=== PATIENT | female | born 1955 | race Caucasian/White ===

== ENCOUNTER 2017-03-03 14:42 | Emergency (ER) | payer OTHER ==
[2017-03-03 14:48] VITALS: O2SAT 95
[2017-03-03] MEDS ORDERED: BENADRYL 50 MG/ML IV ONE (14:53)
[2017-03-03] MEDS ORDERED: SUBLIMAZE 100 MCG/2 ML IV ONE (14:53)
--- NOTE | 2017-03-03 14:59 | ERPHSYRPT ---
- History of Present Illness Time Seen by Provider: 03/03/17 14:47 Source: patient, EMS Patient Subjective Stated Complaint: PT WAS AT WORK ET SLID ON SOMETHING ON THE FLOOR ET FELL-REPORTS PAIN TO [id number] ARM-LEFT KNEE-DENIES LOC BUT STATES THAT SHE WAS STUNNED AFTER FALLING Triage Nursing Assessment: PT PALE WARM ET DRY-ANSWERING ALL QUESTIONS CORRECTLY -MOVING UPPER EXTERMITIES WITH EASE-BRUISING NOTED TO UPPER LEFT ARM Physician History: CC: fall Hx: 61 y/o patient of Dr Matthews was working at [facility]. She slipped on the floor and fell. Hit her head. Pain in the head, neck, low back. Pain in left upper arm and left knee. No other injuries. No N/T/W. Last tetanus vaccine 4 years ago. No chest or abd pain. No N/V. No LOC but felt dazed. She has hx of HTN and DM but is not on blood thinners. Occurred: just prior to arrival Loss of Consciousness: no loss of consciousness, dazed Severity of Pain-Max: moderate Severity of Pain-Current: moderate Allergies/Adverse Reactions: Fish Containing Products Allergy (Verified 03/03/17 14:48) Penicillins Allergy (Verified 03/03/17 14:48) Hives sulfametrole [Sulfametrole] Allergy (Verified 03/03/17 14:48) Home Medications: Alprazolam [Xanax 0.5 mg] 0.5 mg PO TID PRN 02/19/15 [History] Cilostazol [Pletal] 50 mg PO DAILY 02/19/15 [History] Gabapentin 100 mg PO BID 02/19/15 [History] Hydrochlorothiazide 12.5 mg PO DAILY 02/19/15 [History] Insulin Glargine [Lantus Insulin] 35 units SQ QHS 02/19/15 [History] Insulin NPL/Insulin Lispro [Humalog Mix 50-50 Kwikpen] 1 unit SQ BID 02/19/15 [ History] Levothyroxine Sodium 150 mcg PO DAILY 02/19/15 [History] Naproxen 375 mg [Naprosyn 375 mg] 375 mg PO BID 02/19/15 [History] Potassium Gluconate 595 mg PO HS 02/19/15 [History] Montelukast Sodium [Singulair] 10 mg PO DAILY 06/19/16 [History] Hx Tetanus, Diphtheria Vaccination/Date Given: No Hx Influenza Vaccination/Date Given: Yes Hx Pneumococcal Vaccination/Date Given: No Immunizations Up to Date: Yes - Review of Systems Constitutional: No Symptoms, Fever Eyes: No Vision Changes Ears, Nose, & Throat: No Symptoms Respiratory: No Dyspnea Cardiac: No Chest Pain, No Syncope Abdominal/Gastrointestinal: No Abdominal Pain, No Nausea, No Vomiting Musculoskeletal: Back Pain, Neck Pain, Fall, Injury, Joint Pain Neurological: Headache, No Dizziness, No Focal Weakness, No Parasthesia All Other Systems: Reviewed and Negative - Past Medical History Pertinent Past Medical History: Yes Neurological History: Peripheral Neuropathy Cardiac History: High Cholesterol, Hypertension, Peripheral Vascular Disease Respiratory History: No Pertinent History Endocrine Medical History: Diabetes Type II, Hypothyroidism Musculoskeletal History: Arthritis GI Medical History: No Pertinent History History: No Pertinent History Psycho-Social History: Anxiety Female Reproductive Disorders: No Pertinent History - Past Surgical History Past Surgical History: Yes Neuro Surgical History: No Pertinent History Cardiac: Vascular Surgery Respiratory: No Pertinent History Gastrointestinal: Other Genitourinary: No Pertinent History Musculoskeletal: Orthopedic Surgery Female Surgical History: No Pertinent History Other Surgical History: ABDOMINAL ADHESION SURGERY BACK SURGERY LEG SURGERY FOR VEIN BLOCKAGE - Social History Smoking Status: Never smoker Exposure to second hand smoke: No Drug Use: none Patient Lives Alone: No - Nursing Vital Signs Nursing Vital Signs: Initial Vital Signs Temperature 98.0 F Temperature Source Oral Pulse Rate 100 Respiratory Rate 20 Blood Pressure [Right Arm] 147/86 Pain Intensity 8 - Kevin Coma Score Best Eye Response ([place]): (4) open spontaneously Best Verbal Response (Kevin): (5) oriented Best Motor Response ([place]): (6) obeys commands [place] Total: 15 - Physical Exam General Appearance: alert Head Injury: no evidence of injury Eye Exam: PERRL/EOMI ENT Exam: airway nml Neck Exam: mid-line tenderness, c-collar in place Respiratory/Chest Exam: normal breath sounds, No chest tenderness, No respiratory distress Cardiovascular Exam: normal heart sounds, regular rate/rhythm Gastrointestinal Exam: soft, No tenderness, No distention Back Exam: normal inspection, vertebral tenderness (low lumbar) Extremity Exam: tenderness (left upper arm with some swelling, left knee has mild ecchymosis. ROM intact. No hip tenderness.) Neurologic Exam: alert, oriented x 3, cooperative, sensation nml, No motor deficits Skin Exam: warm, dry, No rash SpO2 Interpretation: normal SpO2: 95 Oxygen Delivery: Room Air - Course Nursing assessment & vital signs reviewed: Yes Ordered Tests: Active Orders 24 hr Category Date Time Status Accucheck STAT Care 03/03/17 14:53 Active Accucheck STAT Care 03/03/17 17:31 Active Cold Application STAT Care 03/03/17 14:53 Active IV Insertion STAT Care 03/03/17 14:53 Active Sling Application STAT Care 03/03/17 15:43 Active CERVICAL SPINE WO CONTRAST [CT] Stat Exams 03/03/17 14:54 Completed HEAD WITHOUT CONTRAST [CT] Stat Exams 03/03/17 14:54 Completed HUMERUS Stat Exams 03/03/17 14:55 Completed KNEE (1 OR 2 VIEW) Stat Exams 03/03/17 14:55 Completed LUMBAR SPINE W/O [CT] Stat Exams 03/03/17 14:54 Completed SHOULDER Stat Exams 03/03/17 15:43 Completed CBC W DIFF Stat Lab 03/03/17 14:45 Completed CMP Stat Lab 03/03/17 14:45 Completed CULTURE,URINE Stat Lab 03/03/17 15:53 Ordered Manual Differential NC Stat Lab 03/03/17 14:45 Completed UA Stat Lab 03/03/17 16:30 Completed Medication Summary Discontinued Medications Generic Name Dose Route Start Last Admin Trade Name Phucq PRN Reason Stop Dose Admin Diphenhydramine HCl 25 mg 03/03/17 14:53 03/03/17 15:34 Benadryl 50 Mg/Ml IV 03/03/17 14:54 25 mg STAT ONE Administration Diphenhydramine HCl Confirm 03/03/17 15:28 Benadryl 50 Mg/Ml Administered 03/03/17 15:29 Dose 50 mg .ROUTE .STK-MED ONE Fentanyl Citrate 50 mcg 03/03/17 14:53 03/03/17 15:35 Sublimaze 100 Mcg/2 Ml IV 03/03/17 14:54 50 mcg STAT ONE Administration Fentanyl Citrate Confirm 03/03/17 15:28 Sublimaze 100 Mcg/2 Ml Administered 03/03/17 15:29 Dose 100 mcg .ROUTE .STK-MED ONE Lab/Rad Data: Laboratory Result Diagrams 03/03/17 14:45 03/03/17 14:45 Laboratory Results 03/03/17 03/03/17 03/03/17 Range/Units 16:30 14:45 14:45 WBC 8.6 (4.0-10.5) K/mm3 RBC 4.29 (4.1-5.4) M/mm3 Hgb 13.2 (12.0-16.0) gm/dl Hct 39.0 (35-47) % MCV 90.9 (78-100) fl MCH 30.8 (26-32) pg MCHC 33.8 (32-36) g/dl RDW 13.0 (11.5-14.0) % Plt Count 233 (150-450) K/mm3 MPV 11.5 H (6-9.5) fl Sodium 135 L (136-145) mEq/L Potassium 4.0 (3.5-5.1) mEq/L Chloride 99 (98-107) mEq/L Carbon Dioxide 25.0 (21-32) mEq/L Anion Gap 15.4 H (5-15) MEQ/L BUN 16 (9-20) mg/dL Creatinine 0.84 (0.55-1.30) mg/dl Estimated GFR > 60 ML/MIN Glucose 344 H (70-110) MG/DL Calcium 8.8 (8.5-10.1) mg/dL Total Bilirubin 0.4 (0.2-1.0) mg/dL AST 58 H (15-37) U/L ALT 87 H (12-78) U/L Alkaline Phosphatase 74 (46-116) U/L Serum Total Protein 7.5 (6.4-8.2) gm/dL Albumin 3.9 (3.4-5.0) g/dL Ur Collection Type CCMS Urine Color YELLOW (YELLOW) Urine Appearance CLEAR (CLEAR) Urine pH 6.0 (5-6) Ur Specific [place] 1.020 (1.005-1.025) Urine Protein NEGATIVE (Negative) Urine Glucose (UA) >=1000 (NEGATIVE) mg/dL Urine Ketones NEGATIVE (NEGATIVE) Urine Nitrite NEGATIVE (NEGATIVE) Urine Bilirubin NEGATIVE (NEGATIVE) Urine Urobilinogen 0.2 (0-1) mg/dL Urine WBC (Auto) NEGATIVE (NEGATIVE) Urine RBC (Auto) NEGATIVE (0-5) Kvng/ul Specimen Received 03-03-17 1648 - Progress Progress Note: 03/03/17 17:33 CT negative for acute fx or bleed. Left nondisplaced acromion fracture. Will place sling. Sugar high. She sees Dr Matthews and takes evening lantus on sliding scale. Will suppl with arnold now and advise follow up. Counseled pt/family regarding: lab results, diagnosis, need for follow-up, rad results - Departure Time of Disposition: 17:34 Departure Disposition: Home Clinical Impression: Fall, Nondisplaced fracture of left acromial process, Cervical sprain, Type 2 diabetes mellitus, uncontrolled Condition: Stable Critical Care Time: No Referrals: FLO MATTHEWS [Primary Care Provider] - Instructions: Hyperglycemia -- Adult, Shoulder Fracture Additional Instructions: Left arm sling. Stay with family tonite. Ice packs off and on. Watch sugar. Follow up with Dr Matthews or workers comp doctor tomorrow. Rx norco for pain. Prescriptions: Hydrocodone Bit/Acetaminophen [[place] 5-325 Tablet] 1 each PO Q6H PRN PRN #20 tablet PRN Reason: Pain
[2017-03-03] MEDS ORDERED: SUBLIMAZE 100 MCG/2 ML ONE (15:28)
[2017-03-03] MEDS ORDERED: BENADRYL 50 MG/ML ONE (15:28)
--- NOTE | 2017-03-03 15:34 | XRAY ---
Indication: Pain following fall. Comparison: September 27, 2010. AP/crosstable lateral left knee again demonstrates osteopenia with progressive worsening moderate/advanced tricompartment degenerative changes. No other bony, articular, or soft tissue abnormalities.
--- NOTE | 2017-03-03 15:40 | XRAY ---
Indication: Pain following fall. Comparison: None 2 views of the left humerus demonstrates nondisplaced distal acromion fracture. Incidental mild osteopenia and mild AC degenerative arthropathy. No other bony, articular, or soft tissue abnormalities.
--- NOTE | 2017-03-03 15:41 | XRAY ---
Indication: Pain following fall. Multiple contiguous axial images obtained through the head without contrast. Comparison: None No acute intracranial hemorrhage, abnormal extra-axial fluid collection, or mass effect. Fourth ventricle is midline without hydrocephalus. [place]-white matter differentiation is preserved. Bony calvarium intact. There is near complete opacification of the right maxillary sinus. Remaining visualized paranasal sinuses and mastoid air cells are clear. Impression: No acute intracranial abnormalities. Incidental right maxillary sinus disease. CTDI 52.39
--- NOTE | 2017-03-03 15:43 | XRAY ---
Indication: Pain following fall. Multiple contiguous axial images obtained through the cervical spine. Sagittal and coronal reformatted images obtained. Comparison: None Axial images negative for acute fracture, suspicious bony lesions, or spinal canal stenosis. Minimal C5-C7 degenerative endplate spurring. Sagittal and coronal reformatted images demonstrates lordotic straightening, positional versus paraspinal muscular spasm. Disc spaces maintained. No acute compression fracture, subluxation, or jumped facet. Normal appearing craniocervical junction. Visualized noncontrasted soft tissues demonstrates minimal bilateral carotid calcifications. Lung apices unremarkable. CT head reported separately. Impression: 1. Negative for acute fracture/subluxation. 2. Lordotic straightening, positional versus paraspinal spasm. 3. Minimal C5-C7 degenerative changes. CT DI 53.64
--- NOTE | 2017-03-03 15:47 | XRAY ---
Indication: Pain following fall. Multiple contiguous axial images obtained through the lumbar spine. Sagittal and coronal reformatted images obtained. Comparison: None L3-S1 images are markedly degraded by extreme beam artifact from bilateral pedicle screws/hooks and spinal rods. Axial images through the T12-L3 levels demonstrates mild/moderate annular disc osteophyte complex minimally effacing the thecal sac without large disc herniation or spinal canal stenosis. There is also L2-L3 degenerative vacuum disc phenomena. Sagittal and coronal reformatted images demonstrates mild lordotic straightening with L2-L4 degenerative disc space narrowing. No acute compression fracture or subluxation. Visualized noncontrasted soft tissues demonstrates minimal aortic calcifications. Impression: 1. Limited study due to posterior metallic spinal hardware from previous L4-S1 fusion surgery. 2. Negative for gross acute fracture or subluxation. 3. T12-L3 degenerative disc disease as detailed. CT DI 71.40
[2017-03-03 16:01] LABS: Mean Cell Volume 90.9 fl (78-100); Mean Corpuscular Hemoglobin 30.8 pg (26-32); Mean Platelet Volume 11.5 fl (6-9.5); Platelet Count 233 K/mm3 (150-450); Red Blood Count 4.29 M/mm3 (4.1-5.4); White Blood Count 8.6 K/mm3 (4.0-10.5)
--- NOTE | 2017-03-03 16:06 | XRAY ---
Indication: Pain following fall. Comparison: None 3 views of the left shoulder demonstrates nondisplaced acromion process fracture. Incidental osteopenia and AC degenerative arthropathy. No other bony, articular, or soft tissue abnormalities.
[2017-03-03 16:09] LABS: ALBUMIN 3.9 g/dL (3.4-5.0); ALKALINE PHOSPHATASE 74 U/L (46-116); ANION GAP 15.4 MEQ/L (5-15); BILIRUBIN,TOTAL 0.4 mg/dL (0.2-1.0); BLOOD UREA NITROGEN 16 mg/dL (9-20); CHLORIDE 99 mEq/L (98-107); Glucose 344 MG/DL (70-110); SGOT/AST 58 U/L (15-37); SGPT/ALT 87 U/L (12-78); SODIUM 135 mEq/L (136-145); Total Protein 7.5 gm/dL (6.4-8.2)
[2017-03-03 16:50] LABS: COMPLETE URINE MICROSCOPIC? NO; Collection Type CCMS
[2017-03-03] MEDS ORDERED: NovoLOG Insulin SQ ONE (17:36)
[2017-03-03] MEDS ORDERED: NovoLOG Insulin ONE (17:40)
[2017-03-03 17:54] VITALS: BP 151/86; PULSE 92
[2017-03-03 22:11] LABS: Eosinophil 3 % (0.00-3.0); Total Cells Counted 100
[2017-03-03 22:12] LABS: Platelet Estimate NORMAL (NORMAL)
== END 2017-03-03 17:55 | disposition home or self-care (01) ==
LOC: ED 14:42
DX: S42.125A Nondisplaced fracture of acromial process, left shoulder, initial encounter for closed fracture (principal); S16.1XXA Strain of muscle, fascia and tendon at neck level, initial encounter; E11.65 Type 2 diabetes mellitus with hyperglycemia; W01.0XXA Fall on same level from slipping, tripping and stumbling without subsequent striking against object, initial encounter; Y93.F9 Activity, other caregiving; Y92.129 Unspecified place in nursing home as the place of occurrence of the external cause; Y99.0 Civilian activity done for income or pay; Z79.899 Other long term (current) drug therapy; Z79.4 Long term (current) use of insulin
CPT/HCPCS: 36000; 36415; 70450; 72125; 72131; 73030; 73060; 73560; 80053; 81002; 82962; 85025; 87077; 87086; 96374; 96375; 99283; J1200; J3010; A9270-GY

== ENCOUNTER 2020-08-13 11:22 | Inpatient (IN) | payer OTHER, MEDICARE ==
--- NOTE | 2020-08-13 11:35 | ERPHSYRPT ---
- History of Present Illness Time Seen by Provider: 08/13/20 11:35 Historian: patient Exam Limitations: no limitations Physician History: This is a 64-year-old white female who is diabetic and has hypertension as well as hypothyroidism and presents with initially vomiting on Friday prior to this evaluation followed by right lower quadrant abdominal pain. The right l ower quadrant pain has worsened over the last 2 days. Patient has had no intra- abdominal surgeries in the past. She is unable to hold liquids down. She presents with a low-grade fever of 99.9 F. Patient denies cough, she denies chest pain. She denies shortness of breath. Quality: sharpness, stabbing Abdominal Pain Onset Location: RLQ Pain Radiation: no radiation Severity of Pain-Max: moderate Severity of Pain-Current: moderate Associated Symptoms: loss of appetite, nausea, vomiting, No chest pain, No diarrhea, No shortness of breath Previous symptoms: no prior history Allergies/Adverse Reactions: blueberry Allergy (Verified 08/13/20 11:42) Fish Containing Products Allergy (Verified 08/13/20 11:41) melon Allergy (Verified 08/13/20 11:42) Penicillins Allergy (Verified 08/13/20 11:41) Hives strawberry Allergy (Verified 08/13/20 11:42) sulfametrole [Sulfametrole] Allergy (Verified 08/13/20 11:41) Home Medications: ALPRAZolam [Xanax 0.5 mg] 0.5 mg PO TID PRN 02/19/15 [History] Cilostazol [Pletal] 50 mg PO DAILY 02/19/15 [History] Gabapentin 100 mg PO BID 02/19/15 [History] Levothyroxine Sodium 150 mcg PO DAILY 02/19/15 [History] Naproxen 375 mg [Naprosyn 375 mg] 375 mg PO BID 02/19/15 [History] Montelukast Sodium [Singulair] 10 mg PO DAILY 06/19/16 [History] Atorvastatin Calcium 1 ea DAILY 08/13/20 [History] Benazepril HCl 1 ea DAILY 08/13/20 [History] Empagliflozin [Jardiance] 10 mg PO DAILY 08/13/20 [History] Ergocalciferol (Vitamin D2) [Vitamin D2] 1 ea DAILY 08/13/20 [History] Fluticasone Propionate [Flonase NASAL] 1 ea DAILY 08/13/20 [History] Ipratropium [place] 1 ea Q6-8HPRN PRN 08/13/20 [History] Levothyroxine Sodium [Euthyrox] 1 ea DAILY 08/13/20 [History] Liraglutide [Victoza 2-Oc] 1 ea DAILY 08/13/20 [History] Metformin HCl 500 mg [Glucophage 500 MG] 1,000 mg DAILY 08/13/20 [History] Hx Tetanus, Diphtheria Vaccination/Date Given: No Hx Influenza Vaccination/Date Given: Yes Hx Pneumococcal Vaccination/Date Given: No Travel Risk - International Travel Have you traveled outside of the country in past 3 weeks: No - Coronavirus Screening Are you exhibiting any of the following symptoms?: No Close contact with a COVID-19 positive Pt in past 14-21 Days: No - Review of Systems Constitutional: Fever, No Chills Eyes: No Symptoms Ears, Nose, & Throat: No Symptoms Respiratory: No Symptoms Cardiac: No Symptoms Abdominal/Gastrointestinal: Abdominal Pain (Right lower quadrant), Nausea, Vomiting Genitourinary Symptoms: No Symptoms Musculoskeletal: No Symptoms Skin: No Symptoms Neurological: No Symptoms Psychological: No Symptoms Endocrine: No Symptoms Hematologic/Lymphatic: No Symptoms Immunological/Allergic: No Symptoms All Other Systems: Reviewed and Negative - Past Medical History Pertinent Past Medical History: Yes Neurological History: Peripheral Neuropathy Cardiac History: High Cholesterol, Hypertension, Peripheral Vascular Disease Respiratory History: No Pertinent History Endocrine Medical History: Diabetes Type II, Hypothyroidism Musculoskeletal History: Arthritis GI Medical History: No Pertinent History History: No Pertinent History Psycho-Social History: Anxiety Female Reproductive Disorders: No Pertinent History - Past Surgical History Past Surgical History: Yes Neuro Surgical History: No Pertinent History Cardiac: Vascular Surgery Respiratory: No Pertinent History Gastrointestinal: Other Genitourinary: No Pertinent History Musculoskeletal: Orthopedic Surgery Female Surgical History: No Pertinent History Other Surgical History: ABDOMINAL ADHESION SURGERY BACK SURGERY LEG SURGERY FOR VEIN BLOCKAGE - Social History Smoking Status: Never smoker Exposure to second hand smoke: No Drug Use: none Patient Lives Alone: No - Nursing Vital Signs Nursing Vital Signs: Initial Vital Signs Temperature 99.9 F 08/13/20 11:29 Pulse Rate 125 H 08/13/20 11:29 Respiratory Rate 18 08/13/20 11:29 Blood Pressure 152/107 08/13/20 11:29 O2 Sat by Pulse Oximetry 99 08/13/20 11:29 Pain Scale Pain Intensity 10 - Physical Exam General Appearance: mild distress, alert, anxiety Eye Exam: PERRL/EOMI, eyes nml inspection Ears, Nose, Throat Exam: normal ENT inspection, moist mucous membranes Neck Exam: normal inspection, non-tender, supple, full range of motion Respiratory Exam: normal breath sounds, lungs clear, airway intact, No chest tenderness, No respiratory distress Cardiovascular Exam: tachycardia Gastrointestinal/Abdomen Exam: soft, normal bowel sounds, tenderness (Right lower quadrant), guarding, No rebound Pelvic Exam: not done Rectal Exam: not done Back Exam: normal inspection, normal range of motion, No CVA tenderness, No vertebral tenderness Extremity Exam: normal inspection, normal range of motion, pelvis stable Neurologic Exam: alert, oriented x 3, cooperative, rfid developer II-XII nml as tested, normal mood/affect, nml cerebellar function, nml station & gait, sensation nml Skin Exam: normal color, warm, dry Lymphatic Exam: No adenopathy SpO2 Interpretation: normal O2 Delivery: Room Air - Course Nursing assessment & vital signs reviewed: Yes Ordered Tests: Active Orders 24 hr Category Date Time Status IV Insertion STAT Care 08/13/20 11:51 Active ABDOMEN AND PELVIS W/0 CONTRAS [CT] Stat Exams 08/13/20 11:52 Taken AMYLASE Stat Lab 08/13/20 11:55 Completed CBC W DIFF Stat Lab 08/13/20 11:55 Completed CMP Stat Lab 08/13/20 11:55 Completed LIPASE Stat Lab 08/13/20 11:55 Completed Lactic Acid Stat Lab 08/13/20 11:51 Completed UA W/RFX UR CULTURE Stat Lab 08/13/20 11:53 Completed Transfer Order Routine Transfer 08/13/20 Ordered Medication Summary Generic Name Dose Route Start Last Admin Trade Name Freq PRN Reason Stop Dose Admin Levofloxacin/Dextrose 750 mg in 150 mls @ 100 mls/hr 08/13/20 12:41 08/13/20 12:58 Levofloxacin 750mg/150ml D5w IV 08/13/20 14:10 150 ml/hr STAT STA 150 mls/hr Administration Discontinued Medications Generic Name Dose Route Start Last Admin Trade Name Freq PRN Reason Stop Dose Admin Hydromorphone HCl 1 mg 08/13/20 11:51 08/13/20 12:23 Hydromorphone 1 Mg/Ml Ampule IV 08/13/20 11:52 1 mg STAT ONE Administration Hydromorphone HCl Confirm 08/13/20 12:16 Hydromorphone 1 Mg/Ml Ampule Administered 08/13/20 12:17 Dose 1 mg .ROUTE .STK-MED ONE Sodium Chloride 1,000 mls @ 999 mls/hr 08/13/20 11:51 08/13/20 12:20 Sodium Chloride 0.9% 1000 Ml IV 08/13/20 12:51 999 mls/hr .Q1H1M STA Administration Sodium Chloride Confirm 08/13/20 12:16 Sodium Chloride 0.9% 1000 Ml Administered 08/13/20 12:17 Dose 1,000 mls @ ud .ROUTE .STK-MED ONE Levofloxacin/Dextrose Confirm 08/13/20 12:55 Levofloxacin 750mg/150ml D5w Administered 08/13/20 12:56 Dose 750 mg in 150 mls @ ud IV .STK-MED ONE Ondansetron HCl 4 mg 08/13/20 11:51 08/13/20 12:22 Zofran 4 Mg/2 Ml Vial IV 08/13/20 11:52 4 mg STAT ONE Administration Ondansetron HCl Confirm 08/13/20 12:15 Zofran 4 Mg/2 Ml Vial Administered 08/13/20 12:16 Dose 4 mg .ROUTE .STK-MED ONE Lab/Rad Data: Laboratory Result Diagrams 08/13/20 11:55 08/13/20 11:55 Laboratory Results 08/13/20 08/13/20 08/13/20 Range/Units 11:55 11:55 11:53 WBC 15.3 H (4.0-10.5) K/mm3 RBC 4.51 (4.1-5.4) M/mm3 Hgb 13.8 (12.0-16.0) gm/dl Hct 41.8 (35-47) % MCV 92.7 (78-100) fl MCH 30.6 (26-32) pg MCHC 33.0 (32-36) g/dl RDW 13.1 (11.5-14.0) % Plt Count 228 (150-450) K/mm3 MPV 10.3 (7.5-11.0) fl Gran % 84.7 H (36.0-66.0) % Eos # (Auto) 0.08 (0-0.5) Absolute Lymphs (auto) 1.12 (1.0-4.6) Absolute Monos (auto) 1.14 (0.0-1.3) Lymphocytes % 7.3 L (24.0-44.0) % Monocytes % 7.4 (0.0-12.0) % Eosinophils % 0.5 (0.00-5.0) % Basophils % 0.1 (0.0-0.4) % Absolute Granulocytes 12.97 H (1.4-6.9) Basophils # 0.02 (0-0.4) Sodium 134 L (137-145) mmol/L Potassium 3.6 (3.5-5.1) mmol/L Chloride 98 (98-107) mmol/L Carbon Dioxide 26 (22-30) mmol/L Anion Gap 13.5 (5-15) MEQ/L BUN 13 (7-17) mg/dL Creatinine 0.49 L (0.52-1.04) mg/dL Estimated GFR > 60.0 ML/MIN Glucose 138 H (74-106) mg/dL Lactic Acid (0.4-2.0) Calcium 9.5 (8.4-10.2) mg/dL Total Bilirubin 1.10 (0.2-1.3) mg/dL AST 29 (14-36) U/L ALT 23 (0-35) U/L Alkaline Phosphatase 97 (38-126) U/L Serum Total Protein 8.5 H (6.3-8.2) g/dL Albumin 4.4 (3.5-5.0) g/dL Amylase 75 (30-110) U/L Lipase 78 (23-300) U/L Urine Color YELLOW (YELLOW) Urine Appearance SLIGHTLY CLOUDY (CLEAR) Urine pH 6.0 (5-6) Ur Specific [place] 1.032 (1.005-1.025) Urine Protein NEGATIVE (Negative) Urine Ketones TRACE (NEGATIVE) Urine Blood NEGATIVE (0-5) Kvng/ul Urine Nitrite NEGATIVE (NEGATIVE) Urine Bilirubin NEGATIVE (NEGATIVE) Urine Urobilinogen 2 (0-1) mg/dL Ur Leukocyte Esterase NEGATIVE (NEGATIVE) Urine WBC (Auto) 6-10 (0-5) /HPF Urine RBC (Auto) 0-2 (0-2) /HPF U Epithel Cells (Auto) RARE (FEW) /HPF Urine Bacteria (Auto) NONE (NEGATIVE) /HPF Urine Mucus (Auto) SLIGHT (NEGATIVE) /HPF Urine Culture Reflexed NO (NO) Urine Glucose >=500 (NEGATIVE) mg/dL 08/13/20 Range/Units 11:51 WBC (4.0-10.5) K/mm3 RBC (4.1-5.4) M/mm3 Hgb (12.0-16.0) gm/dl Hct (35-47) % MCV (78-100) fl MCH (26-32) pg MCHC (32-36) g/dl RDW (11.5-14.0) % Plt Count (150-450) K/mm3 MPV (7.5-11.0) fl Gran % (36.0-66.0) % Eos # (Auto) (0-0.5) Absolute Lymphs (auto) (1.0-4.6) Absolute Monos (auto) (0.0-1.3) Lymphocytes % (24.0-44.0) % Monocytes % (0.0-12.0) % Eosinophils % (0.00-5.0) % Basophils % (0.0-0.4) % Absolute Granulocytes (1.4-6.9) Basophils # (0-0.4) Sodium (137-145) mmol/L Potassium (3.5-5.1) mmol/L Chloride (98-107) mmol/L Carbon Dioxide (22-30) mmol/L Anion Gap (5-15) MEQ/L BUN (7-17) mg/dL Creatinine (0.52-1.04) mg/dL Estimated GFR ML/MIN Glucose (74-106) mg/dL Lactic Acid 1.7 (0.4-2.0) Calcium (8.4-10.2) mg/dL Total Bilirubin (0.2-1.3) mg/dL AST (14-36) U/L ALT (0-35) U/L Alkaline Phosphatase (38-126) U/L Serum Total Protein (6.3-8.2) g/dL Albumin (3.5-5.0) g/dL Amylase (30-110) U/L Lipase (23-300) U/L Urine Color (YELLOW) Urine Appearance (CLEAR) Urine pH (5-6) Ur Specific [place] (1.005-1.025) Urine Protein (Negative) Urine Ketones (NEGATIVE) Urine Blood (0-5) Kvng/ul Urine Nitrite (NEGATIVE) Urine Bilirubin (NEGATIVE) Urine Urobilinogen (0-1) mg/dL Ur Leukocyte Esterase (NEGATIVE) Urine WBC (Auto) (0-5) /HPF Urine RBC (Auto) (0-2) /HPF U Epithel Cells (Auto) (FEW) /HPF Urine Bacteria (Auto) (NEGATIVE) /HPF Urine Mucus (Auto) (NEGATIVE) /HPF Urine Culture Reflexed (NO) Urine Glucose (NEGATIVE) mg/dL - Progress Progress: improved, pain not gone completely, re-examined Progress Note: 08/13/20 12:40 CAT scan of the abdomen and pelvis reveals transmural wall thickening of the cecum to a greater degree than the ascending, transverse and descending colon suggesting colitis. The appendix is not identified. 08/13/20 13:15 Medical decision making: This patient has at the least a colitis of the cecum. The appendix is not visualized. Is difficult to completely rule out acute appendicitis. Therefore, I contacted Dr. Franco who is covering for this patient's primary care doctor, Dr. Matthews. We determined that the best approach would be to admit this patient to the hospital, provide intravenous antibiotics, make the patient n.p.o., and obtain a surgical consultation. Patient will also receive antiemetics and intravenous fluids. She will also receive intravenous pain medication. We will repeat labs in the morning. Discussed with : No Counseled pt/family regarding: lab results, diagnosis, rad results - Departure Departure Disposition: In-patient Admission Clinical Impression: Right lower quadrant abdominal pain, Colitis Condition: Stable Critical Care Time: No Referrals: DOCTOR,NO FAMILY [NON-STAFF PHY W/O PRIVILEGES] -
[2020-08-13] MEDS ORDERED: Sodium Chloride 0.9% 1000 ML 1,000 ML IV STA (11:51)
[2020-08-13] MEDS ORDERED: Zofran 4 MG/2 ML VIAL IV ONE (11:51)
[2020-08-13] MEDS ORDERED: Hydromorphone 1 mg/ml Ampule IV ONE (11:51)
[2020-08-13 12:09] LABS: Absolute Neutrophil Ct (ANC) 12.97 (1.4-6.9); BASOPHIL % 0.1 % (0.0-0.4); Basophil (Absolute #) 0.02 (0-0.4); Eosinophil % 0.5 % (0.00-5.0); Eosinophil (Absolute #) 0.08 (0-0.5); Hematocrit 41.8 % (35-47); Hemoglobin 13.8 gm/dl (12.0-16.0); Lymphocyte (Absolute #) 1.12 (1.0-4.6); Lymphocytes % 7.3 % (24.0-44.0); Mean Cell Volume 92.7 fl (78-100); Mean Corpuscular Hemoglobin 30.6 pg (26-32); Mean Platelet Volume 10.3 fl (7.5-11.0); Monocyte (Absolute #) 1.14 (0.0-1.3); Monocytes % 7.4 % (0.0-12.0); Neutrophil % 84.7 % (36.0-66.0); Platelet Count 228 K/mm3 (150-450); Red Blood Count 4.51 M/mm3 (4.1-5.4); Red Cell Distribution Width 13.1 % (11.5-14.0); White Blood Count 15.3 K/mm3 (4.0-10.5)
[2020-08-13 12:10] LABS: Appearance SLIGHTLY CLOUDY (CLEAR); Bilirubin NEGATIVE (NEGATIVE); Blood NEGATIVE Ery/ul (0-5); Epithelial Cells RARE /HPF (FEW); Glucose >=500 mg/dL (NEGATIVE); Ketones TRACE (NEGATIVE); Leukocyte Esterase NEGATIVE (NEGATIVE); Mucus SLIGHT /HPF (NEGATIVE); Nitrite NEGATIVE (NEGATIVE); Protein,Urine Dip NEGATIVE (Negative); RBC 0-2 /HPF (0-2); Specific Gravity 1.032 (1.005-1.025); Urobilinogen 2 mg/dL (0-1)
[2020-08-13 12:13] LABS: ALBUMIN 4.4 g/dL (3.5-5.0); ALKALINE PHOSPHATASE 97 U/L (38-126); AMYLASE 75 U/L (30-110); ANION GAP 13.5 MEQ/L (5-15); BLOOD UREA NITROGEN 13 mg/dL (7-17); CHLORIDE 98 mmol/L (98-107); Calcium 9.5 mg/dL (8.4-10.2); Carbon Dioxide 26 mmol/L (22-30); Creatinine 1 0.49 mg/dL (0.52-1.04); EST GLOMERULAR FILTRATION RATE > 60.0 ML/MIN; Glucose 138 mg/dL (74-106); LIPASE 78 U/L (23-300); Potassium 3.6 mmol/L (3.5-5.1); SGOT/AST 29 U/L (14-36); SGPT/ALT 23 U/L (0-35); SODIUM 134 mmol/L (137-145); Total Protein 8.5 g/dL (6.3-8.2)
[2020-08-13] MEDS ORDERED: Zofran 4 MG/2 ML VIAL ONE ×2 (12:15→23:40)
[2020-08-13] MEDS ORDERED: Hydromorphone 1 mg/ml Ampule ONE (12:16)
[2020-08-13] MEDS ORDERED: Sodium Chloride 0.9% 1000 ML 1,000 ML ONE ×2 (12:16→17:35)
[2020-08-13] MEDS ORDERED: LEVOFLOXACIN 750MG/150ML D5W 750 MG/150 ML BAG IV STA (12:41)
[2020-08-13] MEDS ORDERED: LEVOFLOXACIN 750MG/150ML D5W 750 MG/150 ML BAG IV ONE (12:55)
[2020-08-13] MEDS ORDERED: Sodium Chloride 0.9% 1000 ML 1,000 ML IV SCH (13:52)
[2020-08-13] MEDS ORDERED: FEVERALL 650 MG PR PRN (13:52)
[2020-08-13] MEDS ORDERED: Zofran 4 MG/2 ML VIAL IV PRN (13:52)
[2020-08-13] MEDS ORDERED: HUMULIN R SQ PRN (13:52)
[2020-08-13] MEDS: FLAGYL 500 MG IVPB 500 MG/100 ML BAG IV SCH ×2 (14:39→18:00)
[2020-08-13] MEDS: DILAUDID 2 MG INJECTION IV PRN ×2 (14:47→20:12)
[2020-08-13] MEDS ORDERED: NORCO 5/325 MG ONE (15:59)
--- NOTE | 2020-08-13 16:38 | XRAY ---
Indication: Abdomen pain. Multiple contiguous axial images obtained through the abdomen and pelvis without contrast as ordered. Comparison: None Lung bases demonstrates mild dependent atelectasis and tiny right posterior gutter calcified granulomas. Heart is not enlarged. L4-S1 posterior fusion hardware produces extreme beam artifact limiting these levels. Noncontrasted stomach and bowel loops appear nonobstructed. Retrocecal appendix is prominent up to 12 mm with periappendiceal stranding favoring acute appendicitis. Tiny reactive free fluid adjacently. No walled off fluid collection or free air. Spleen is enlarged measuring 12.7 cm. Nonobstructing renal punctate calculus in each kidney. Remaining liver, gallbladder, pancreas, spleen, adrenal glands, kidneys, ureters, bladder, and uterus appear unremarkable for noncontrast exam. Minimal aortoiliac calcifications without AAA. Osseous structures intact with mild osteopenia, mild/moderate multilevel thoracolumbar degenerative spondylosis, and mild dextroscoliosis centered at thoracolumbar junction. Mild degenerative changes of both hips. Impression: 1. Beam artifact from L4-S1 fusion hardware. 2. Abnormal prominent appendix with periappendiceal stranding and free fluid favoring acute appendicitis. 3. Incidental splenomegaly, nonobstructing bilateral renal microcalculi, and chronic bony findings. Comment: Preliminary interpretation was made by [facility] who reports, " appendix is not identified." I disagree. Telephone report for acute appendicitis was given to ordering clinician, Dr. Duenas at 1628 hrs. on August 13, 2020.
[2020-08-13] MEDS: Dextrose 5%-NS IV Solution 1000 ML 1,000 ML IV SCH (16:49)
--- NOTE | 2020-08-13 17:05 | PCM.HP ---
History of Present Illness - Chief Complaint Chief Complaint: Colitis acute appendicitis History of Present Illness: is a 64 year old female. Medications & Allergies Home Medications: Home Medication List ALPRAZolam [Xanax 0.5 mg] 0.25 mg PO HS 02/19/15 [History Confirmed 08/13/20] Cilostazol [Pletal] 50 mg PO BID 02/19/15 [History Confirmed 08/13/20] Gabapentin 300 mg PO BID 02/19/15 [History Confirmed 08/13/20] Montelukast Sodium [Singulair] 10 mg PO HS 06/19/16 [History Confirmed 08/13/20] Acetaminophen 325 mg [Tylenol 325 mg] 650 mg PO Q4H PRN PRN 08/13/20 [History Confirmed 08/13/20] Atorvastatin Calcium 40 mg PO HS 08/13/20 [History Confirmed 08/13/20] Benazepril HCl 10 mg PO HS 08/13/20 [History Confirmed 08/13/20] Diphenhydramine HCl 25 mg [Benadryl 25 mg Capsule] 25 mg PO BID 08/13/20 [History Confirmed 08/13/20] Empagliflozin [Jardiance] 10 mg PO DAILY 08/13/20 [History Confirmed 08/13/20] Ergocalciferol (Vitamin D2) [Vitamin D2] 50,000 unit PO WEEKLY 08/13/20 [History Confirmed 08/13/20] Fluticasone Propionate [Flonase NASAL] 1 spray INTRANASAL HS 08/13/20 [History Confirmed 08/13/20] Ipratropium [place] 2 spray INTRANASAL BID 08/13/20 [History Confirmed 08/13/20] Levothyroxine Sodium [Euthyrox] 200 mcg PO DAILY 08/13/20 [History Confirmed 08/13/20] Liraglutide [Victoza 2-Oc] 0.6 mg IJ DAILY 08/13/20 [History Confirmed 08/13/20] Loratadine 10 mg [Claritin 10 mg] 10 mg PO DAILY 08/13/20 [History Confirmed 08/13/20] Metformin HCl 500 mg [Glucophage 500 MG] 1,000 mg DAILY 08/13/20 [History Confirmed 08/13/20] Allergies/Adverse Reactions: Allergies Allergy/AdvReac Type Severity Reaction Status Date / Time blueberry Allergy Verified 08/13/20 11:42 Fish Containing Products Allergy Verified 08/13/20 11:41 melon Allergy Verified 08/13/20 11:42 Penicillins Allergy Hives Verified 08/13/20 11:41 strawberry Allergy Verified 08/13/20 11:42 sulfametrole [Sulfametrole] Allergy Verified 08/13/20 11:41 - Past Medical History Past Medical History: Yes Neurological History: Peripheral Neuropathy Cardiac History: High Cholesterol, Hypertension, Peripheral Vascular Disease Respiratory History: No Pertinent History Endocrine Medical History: Diabetes Type II, Hypothyroidism Musculoskelatal History: Arthritis GI Medical History: No Pertinent History History: No Pertinent History Pyscho-Social History: Anxiety Reproductive Disorders: No Pertinent History - Female History Hx Last Menstrual Period: post Are you now?: No - Past Surgical History Past Surgical History: Yes Neuro Surgical History: No Pertinent History Cardiac History: Vascular Surgery Respiratory Surgery: No Pertinent History GI Surgical History: Other Genitourinary Surgical Hx: No Pertinent History Musculskeletal Surgical Hx: Orthopedic Surgery Female Surgical History: No Pertinent History Other Surgical History: ABDOMINAL ADHESION SURGERY BACK SURGERY LEG SURGERY FOR VEIN BLOCKAGE, LEFT ROTATOR CUFF REPAIR - Social History Smoking Status: Never smoker Exposure to second hand smoke: No Alcohol: None Drug Use: none - Physical Exam Vital Signs: Vital Signs - 24 hr Temp Pulse Resp BP Pulse Ox 08/13/20 15:58 98.1 F 101 H 15 119/68 96 08/13/20 13:53 98 F 108 H 18 134/82 98 08/13/20 12:44 102 H 17 136/97 94 L 08/13/20 11:29 99.9 F 125 H 18 152/107 99 Results - Labs Lab/Micro Results: Lab Results-Last 24 Hours 08/13/20 08/13/20 08/13/20 Range/Units 11:51 11:53 11:55 WBC 15.3 H (4.0-10.5) K/mm3 RBC 4.51 (4.1-5.4) M/mm3 Hgb 13.8 (12.0-16.0) gm/dl Hct 41.8 (35-47) % MCV 92.7 (78-100) fl MCH 30.6 (26-32) pg MCHC 33.0 (32-36) g/dl RDW 13.1 (11.5-14.0) % Plt Count 228 (150-450) K/mm3 MPV 10.3 (7.5-11.0) fl Gran % 84.7 H (36.0-66.0) % Eos # (Auto) 0.08 (0-0.5) Absolute Lymphs (auto) 1.12 (1.0-4.6) Absolute Monos (auto) 1.14 (0.0-1.3) Lymphocytes % 7.3 L (24.0-44.0) % Monocytes % 7.4 (0.0-12.0) % Eosinophils % 0.5 (0.00-5.0) % Basophils % 0.1 (0.0-0.4) % Absolute Granulocytes 12.97 H (1.4-6.9) Basophils # 0.02 (0-0.4) Sodium (137-145) mmol/L Potassium (3.5-5.1) mmol/L Chloride (98-107) mmol/L Carbon Dioxide (22-30) mmol/L Anion Gap (5-15) MEQ/L BUN (7-17) mg/dL Creatinine (0.52-1.04) mg/dL Estimated GFR ML/MIN Glucose (74-106) mg/dL POC Glucometer (74 to 106) mg/dL Lactic Acid 1.7 (0.4-2.0) Calcium (8.4-10.2) mg/dL Total Bilirubin (0.2-1.3) mg/dL AST (14-36) U/L ALT (0-35) U/L Alkaline Phosphatase (38-126) U/L Serum Total Protein (6.3-8.2) g/dL Albumin (3.5-5.0) g/dL Amylase (30-110) U/L Lipase (23-300) U/L Urine Color YELLOW (YELLOW) Urine Appearance SLIGHTLY CLOUDY (CLEAR) Urine pH 6.0 (5-6) Ur Specific [place] 1.032 (1.005-1.025) Urine Protein NEGATIVE (Negative) Urine Ketones TRACE (NEGATIVE) Urine Blood NEGATIVE (0-5) Kvng/ul Urine Nitrite NEGATIVE (NEGATIVE) Urine Bilirubin NEGATIVE (NEGATIVE) Urine Urobilinogen 2 (0-1) mg/dL Ur Leukocyte Esterase NEGATIVE (NEGATIVE) Urine WBC (Auto) 6-10 (0-5) /HPF Urine RBC (Auto) 0-2 (0-2) /HPF U Epithel Cells (Auto) RARE (FEW) /HPF Urine Bacteria (Auto) NONE (NEGATIVE) /HPF Urine Mucus (Auto) SLIGHT (NEGATIVE) /HPF Urine Culture Reflexed NO (NO) Urine Glucose >=500 (NEGATIVE) mg/dL 08/13/20 08/13/20 Range/Units 11:55 16:26 WBC (4.0-10.5) K/mm3 RBC (4.1-5.4) M/mm3 Hgb (12.0-16.0) gm/dl Hct (35-47) % MCV (78-100) fl MCH (26-32) pg MCHC (32-36) g/dl RDW (11.5-14.0) % Plt Count (150-450) K/mm3 MPV (7.5-11.0) fl Gran % (36.0-66.0) % Eos # (Auto) (0-0.5) Absolute Lymphs (auto) (1.0-4.6) Absolute Monos (auto) (0.0-1.3) Lymphocytes % (24.0-44.0) % Monocytes % (0.0-12.0) % Eosinophils % (0.00-5.0) % Basophils % (0.0-0.4) % Absolute Granulocytes (1.4-6.9) Basophils # (0-0.4) Sodium 134 L (137-145) mmol/L Potassium 3.6 (3.5-5.1) mmol/L Chloride 98 (98-107) mmol/L Carbon Dioxide 26 (22-30) mmol/L Anion Gap 13.5 (5-15) MEQ/L BUN 13 (7-17) mg/dL Creatinine 0.49 L (0.52-1.04) mg/dL Estimated GFR > 60.0 ML/MIN Glucose 138 H (74-106) mg/dL POC Glucometer 80 (74 to 106) mg/dL Lactic Acid (0.4-2.0) Calcium 9.5 (8.4-10.2) mg/dL Total Bilirubin 1.10 (0.2-1.3) mg/dL AST 29 (14-36) U/L ALT 23 (0-35) U/L Alkaline Phosphatase 97 (38-126) U/L Serum Total Protein 8.5 H (6.3-8.2) g/dL Albumin 4.4 (3.5-5.0) g/dL Amylase 75 (30-110) U/L Lipase 78 (23-300) U/L Urine Color (YELLOW) Urine Appearance (CLEAR) Urine pH (5-6) Ur Specific [place] (1.005-1.025) Urine Protein (Negative) Urine Ketones (NEGATIVE) Urine Blood (0-5) Kvng/ul Urine Nitrite (NEGATIVE) Urine Bilirubin (NEGATIVE) Urine Urobilinogen (0-1) mg/dL Ur Leukocyte Esterase (NEGATIVE) Urine WBC (Auto) (0-5) /HPF Urine RBC (Auto) (0-2) /HPF U Epithel Cells (Auto) (FEW) /HPF Urine Bacteria (Auto) (NEGATIVE) /HPF Urine Mucus (Auto) (NEGATIVE) /HPF Urine Culture Reflexed (NO) Urine Glucose (NEGATIVE) mg/dL - Radiology Impressions Radiology Exams & Impressions: Radiology Procedures Category Date Time Status ABDOMEN AND PELVIS W/0 CONTRAS [CT] Stat Exams 08/13/20 11:52 Completed
[2020-08-13] MEDS ORDERED: CLINDAMYCIN-D5W 900 MG/50 ML*** 900 MG/50 ML BAG IV ONE (17:34)
[2020-08-13] MEDS ORDERED: CLINDAMYCIN-D5W 900 MG/50 ML*** 900 MG/50 ML BAG IV SCH (18:30)
[2020-08-13] MEDS ORDERED: Lactated Ringers 1,000 ML IV ONE ×3 (20:21→23:13)
[2020-08-13] MEDS ORDERED: DIPRIVAN 200 MG/20 ML IV ONE (20:27)
[2020-08-13] MEDS ORDERED: Versed 2 MG/2 ML Injection ONE (20:27)
[2020-08-13] MEDS ORDERED: Quelicin Fliptop 200 MG/10 ML ONE (20:27)
[2020-08-13] MEDS ORDERED: SUBLIMAZE 250 MCG/5 ML ONE (20:27)
[2020-08-13] MEDS ORDERED: Zemuron 100 MG/10 ML ONE ×2 (20:27→22:18)
[2020-08-13] MEDS ORDERED: Sensorcaine 0.25% 10 ML ONE ×2 (20:49→21:25)
--- NOTE | 2020-08-13 20:58 | PCM.CONS ---
History of Present Illness - Reason for Consult Chief Complaint: Colitis acute appendicitis Requesting Provider: JAMAAL BOTELLO DO Consulting Provider: FARNAZ ADAM MD History of Present Illness: is a 64 year old female. hx per chart review and d/w patient. nausea friday. pain. worsened until now. nausea. chilled. per ED note "This is a 64-year-old white female who is diabetic and has hypertension as well as hypothyroidism and presents with initially vomiting on Friday prior to this evaluation followed by right lower quadrant abdominal pain. The right lower quadrant pain has worsened over the last 2 days. Patient has had no intra-abdominal surgeries in the past. She is unable to hold liquids down. She presents with a low-grade fever of 99.9 F. Patient denies cough, she denies chest pain. She denies shortness of breath. Quality: sharpness, stabbing Abdominal Pain Onset Location: RLQ Pain Radiation: no radiation Severity of Pain-Max: moderate Severity of Pain-Current: moderate Associated Symptoms: loss of appetite, nausea, vomiting, No chest pain, No diarrhea, No shortness of breath Previous symptoms: no prior history Allergies/Adverse Reactions: blueberry Allergy (Verified 08/13/20 11:42) Fish Containing Products Allergy (Verified 08/13/20 11:41) melon Allergy (Verified 08/13/20 11:42) Penicillins Allergy (Verified 08/13/20 11:41) Hives strawberry Allergy (Verified 08/13/20 11:42) sulfametrole [Sulfametrole] Allergy (Verified 08/13/20 11:41) Home Medications: ALPRAZolam [Xanax 0.5 mg] 0.5 mg PO TID PRN 02/19/15 [History] Cilostazol [Pletal] 50 mg PO DAILY 02/19/15 [History] Gabapentin 100 mg PO BID 02/19/15 [History] Levothyroxine Sodium 150 mcg PO DAILY 02/19/15 [History] Naproxen 375 mg [Naprosyn 375 mg] 375 mg PO BID 02/19/15 [History] Montelukast Sodium [Singulair] 10 mg PO DAILY 06/19/16 [History] Atorvastatin Calcium 1 ea DAILY 08/13/20 [History] Benazepril HCl 1 ea DAILY 08/13/20 [History] Empagliflozin [Jardiance] 10 mg PO DAILY 08/13/20 [History] Ergocalciferol (Vitamin D2) [Vitamin D2] 1 ea DAILY 08/13/20 [History] Fluticasone Propionate [Flonase NASAL] 1 ea DAILY 08/13/20 [History] Ipratropium [place] 1 ea Q6-8HPRN PRN 08/13/20 [History] Levothyroxine Sodium [Euthyrox] 1 ea DAILY 08/13/20 [History] Liraglutide [Victoza 2-Oc] 1 ea DAILY 08/13/20 [History] Metformin HCl 500 mg [Glucophage 500 MG] 1,000 mg DAILY 08/13/20 [History] Hx Tetanus, Diphtheria Vaccination/Date Given: No Hx Influenza Vaccination/Date Given: Yes Hx Pneumococcal Vaccination/Date Given: No Travel Risk - International Travel Have you traveled outside of the country in past 3 weeks: No - Coronavirus Screening Are you exhibiting any of the following symptoms?: No Close contact with a COVID-19 positive Pt in past 14-21 Days: No - Review of Systems Constitutional: Fever, No Chills Eyes: No Symptoms Ears, Nose, & Throat: No Symptoms Respiratory: No Symptoms Cardiac: No Symptoms Abdominal/Gastrointestinal: Abdominal Pain (Right lower quadrant), Nausea, Vomiting Genitourinary Symptoms: No Symptoms Musculoskeletal: No Symptoms Skin: No Symptoms Neurological: No Symptoms Psychological: No Symptoms Endocrine: No Symptoms Hematologic/Lymphatic: No Symptoms Immunological/Allergic: No Symptoms All Other Systems: Reviewed and Negative - Past Medical History Pertinent Past Medical History: Yes Neurological History: Peripheral Neuropathy Cardiac History: High Cholesterol, Hypertension, Peripheral Vascular Disease Respiratory History: No Pertinent History Endocrine Medical History: Diabetes Type II, Hypothyroidism Musculoskeletal History: Arthritis GI Medical History: No Pertinent History History: No Pertinent History Psycho-Social History: Anxiety Female Reproductive Disorders: No Pertinent History - Past Surgical History Past Surgical History: Yes Neuro Surgical History: No Pertinent History Cardiac: Vascular Surgery Respiratory: No Pertinent History Gastrointestinal: Other Genitourinary: No Pertinent History Musculoskeletal: Orthopedic Surgery Female Surgical History: No Pertinent History Other Surgical History: ABDOMINAL ADHESION SURGERY BACK SURGERY LEG SURGERY FOR VEIN BLOCKAGE - Social History Smoking Status: Never smoker Exposure to second hand smoke: No Drug Use: none Patient Lives Alone: No " Medications & Allergies Home Medications: Home Medication List ALPRAZolam [Xanax 0.5 mg] 0.25 mg PO HS 02/19/15 [History Confirmed 08/13/20] Cilostazol [Pletal] 50 mg PO BID 02/19/15 [History Confirmed 08/13/20] Gabapentin 300 mg PO BID 02/19/15 [History Confirmed 08/13/20] Montelukast Sodium [Singulair] 10 mg PO HS 06/19/16 [History Confirmed 08/13/20] Acetaminophen 325 mg [Tylenol 325 mg] 650 mg PO Q4H PRN PRN 08/13/20 [History Confirmed 08/13/20] Atorvastatin Calcium 40 mg PO HS 08/13/20 [History Confirmed 08/13/20] Benazepril HCl 10 mg PO HS 08/13/20 [History Confirmed 08/13/20] Diphenhydramine HCl 25 mg [Benadryl 25 mg Capsule] 25 mg PO BID 08/13/20 [History Confirmed 08/13/20] Empagliflozin [Jardiance] 10 mg PO DAILY 08/13/20 [History Confirmed 08/13/20] Ergocalciferol (Vitamin D2) [Vitamin D2] 50,000 unit PO WEEKLY 08/13/20 [History Confirmed 08/13/20] Fluticasone Propionate [Flonase NASAL] 1 spray INTRANASAL HS 08/13/20 [History Confirmed 08/13/20] Ipratropium [place] 2 spray INTRANASAL BID 08/13/20 [History Confirmed 08/13/20] Levothyroxine Sodium [Euthyrox] 200 mcg PO DAILY 08/13/20 [History Confirmed 08/13/20] Liraglutide [Victoza 2-Oc] 0.6 mg IJ DAILY 08/13/20 [History Confirmed 08/13/20 ] Loratadine 10 mg [Claritin 10 mg] 10 mg PO DAILY 08/13/20 [History Confirmed 08/13/20] Metformin HCl 500 mg [Glucophage 500 MG] 1,000 mg DAILY 08/13/20 [History Confirmed 08/13/20] Allergies/Adverse Reactions: Allergies Allergy/AdvReac Type Severity Reaction Status Date / Time blueberry Allergy Verified 08/13/20 11:42 Fish Containing Products Allergy Verified 08/13/20 11:41 melon Allergy Verified 08/13/20 11:42 Penicillins Allergy Hives Verified 08/13/20 11:41 strawberry Allergy Verified 08/13/20 11:42 sulfametrole [Sulfametrole] Allergy Verified 08/13/20 11:41 - Past Medical History Past Medical History: Yes Neurological History: Peripheral Neuropathy Cardiac History: High Cholesterol, Hypertension, Peripheral Vascular Disease Respiratory History: No Pertinent History Endocrine Medical History: Diabetes Type II, Hypothyroidism Musculoskelatal History: Arthritis GI Medical History: No Pertinent History History: No Pertinent History Pyscho-Social History: Anxiety Reproductive Disorders: No Pertinent History - Female History Hx Last Menstrual Period: post Are you now?: No - Past Surgical History Past Surgical History: Yes Neuro Surgical History: No Pertinent History Cardiac History: Vascular Surgery Respiratory Surgery: No Pertinent History GI Surgical History: Other Genitourinary Surgical Hx: No Pertinent History Musculskeletal Surgical Hx: Orthopedic Surgery Female Surgical History: No Pertinent History Other Surgical History: ABDOMINAL ADHESION SURGERY BACK SURGERY LEG SURGERY FOR VEIN BLOCKAGE, LEFT ROTATOR CUFF REPAIR - Social History Smoking Status: Never smoker Exposure to second hand smoke: No Alcohol: None Drug Use: none - Physical Exam Vital Signs: Vital Signs - 24 hr Temp Pulse Resp BP Pulse Ox 08/13/20 20:00 97.9 F 75 16 144/83 99 08/13/20 19:34 98.1 F 101 H 15 119/68 96 08/13/20 17:52 98.1 F 101 H 15 119/68 96 08/13/20 17:08 98.1 F 101 H 15 119/68 96 08/13/20 15:58 98.1 F 101 H 15 119/68 96 08/13/20 13:53 98 F 108 H 18 134/82 98 08/13/20 12:44 102 H 17 136/97 94 L 08/13/20 11:29 99.9 F 125 H 18 152/107 99 General Appearance: no apparent distress Neurologic Exam: alert, oriented x 3 Eye Exam: No scleral icterus Neck Exam: normal inspection Respiratory Exam: No respiratory distress Cardiovascular Exam: regular rate/rhythm Gastrointestinal/Abdomen Exam: soft, tenderness Pelvic Exam: not done Extremity Exam: No pedal edema Skin Exam: normal color, warm (abd nd, soft, ttp rlq with localized guarding and rebound.) Results - Labs Lab/Micro Results: Lab Results-Last 24 Hours 08/13/20 08/13/20 08/13/20 Range/Units 11:51 11:53 11:55 WBC 15.3 H (4.0-10.5) K/mm3 RBC 4.51 (4.1-5.4) M/mm3 Hgb 13.8 (12.0-16.0) gm/dl Hct 41.8 (35-47) % MCV 92.7 (78-100) fl MCH 30.6 (26-32) pg MCHC 33.0 (32-36) g/dl RDW 13.1 (11.5-14.0) % Plt Count 228 (150-450) K/mm3 MPV 10.3 (7.5-11.0) fl Gran % 84.7 H (36.0-66.0) % Eos # (Auto) 0.08 (0-0.5) Absolute Lymphs (auto) 1.12 (1.0-4.6) Absolute Monos (auto) 1.14 (0.0-1.3) Lymphocytes % 7.3 L (24.0-44.0) % Monocytes % 7.4 (0.0-12.0) % Eosinophils % 0.5 (0.00-5.0) % Basophils % 0.1 (0.0-0.4) % Absolute Granulocytes 12.97 H (1.4-6.9) Basophils # 0.02 (0-0.4) Sodium (137-145) mmol/L Potassium (3.5-5.1) mmol/L Chloride (98-107) mmol/L Carbon Dioxide (22-30) mmol/L Anion Gap (5-15) MEQ/L BUN (7-17) mg/dL Creatinine (0.52-1.04) mg/dL Estimated GFR ML/MIN Glucose (74-106) mg/dL POC Glucometer (74 to 106) mg/dL Hemoglobin A1c (4.5-6.0) % Lactic Acid 1.7 (0.4-2.0) Calcium (8.4-10.2) mg/dL Total Bilirubin (0.2-1.3) mg/dL AST (14-36) U/L ALT (0-35) U/L Alkaline Phosphatase (38-126) U/L Serum Total Protein (6.3-8.2) g/dL Albumin (3.5-5.0) g/dL Amylase (30-110) U/L Lipase (23-300) U/L TSH 3rd Generation (0.47-4.68) mIU/L Urine Color YELLOW (YELLOW) Urine Appearance SLIGHTLY CLOUDY (CLEAR) Urine pH 6.0 (5-6) Ur Specific [place] 1.032 (1.005-1.025) Urine Protein NEGATIVE (Negative) Urine Ketones TRACE (NEGATIVE) Urine Blood NEGATIVE (0-5) Kvng/ul Urine Nitrite NEGATIVE (NEGATIVE) Urine Bilirubin NEGATIVE (NEGATIVE) Urine Urobilinogen 2 (0-1) mg/dL Ur Leukocyte Esterase NEGATIVE (NEGATIVE) Urine WBC (Auto) 6-10 (0-5) /HPF Urine RBC (Auto) 0-2 (0-2) /HPF U Epithel Cells (Auto) RARE (FEW) /HPF Urine Bacteria (Auto) NONE (NEGATIVE) /HPF Urine Mucus (Auto) SLIGHT (NEGATIVE) /HPF Urine Culture Reflexed NO (NO) Urine Glucose >=500 (NEGATIVE) mg/dL 08/13/20 08/13/20 08/13/20 Range/Units 11:55 11:55 11:55 WBC (4.0-10.5) K/mm3 RBC (4.1-5.4) M/mm3 Hgb (12.0-16.0) gm/dl Hct (35-47) % MCV (78-100) fl MCH (26-32) pg MCHC (32-36) g/dl RDW (11.5-14.0) % Plt Count (150-450) K/mm3 MPV (7.5-11.0) fl Gran % (36.0-66.0) % Eos # (Auto) (0-0.5) Absolute Lymphs (auto) (1.0-4.6) Absolute Monos (auto) (0.0-1.3) Lymphocytes % (24.0-44.0) % Monocytes % (0.0-12.0) % Eosinophils % (0.00-5.0) % Basophils % (0.0-0.4) % Absolute Granulocytes (1.4-6.9) Basophils # (0-0.4) Sodium 134 L (137-145) mmol/L Potassium 3.6 (3.5-5.1) mmol/L Chloride 98 (98-107) mmol/L Carbon Dioxide 26 (22-30) mmol/L Anion Gap 13.5 (5-15) MEQ/L BUN 13 (7-17) mg/dL Creatinine 0.49 L (0.52-1.04) mg/dL Estimated GFR > 60.0 ML/MIN Glucose 138 H (74-106) mg/dL POC Glucometer (74 to 106) mg/dL Hemoglobin A1c 5.74 (4.5-6.0) % Lactic Acid (0.4-2.0) Calcium 9.5 (8.4-10.2) mg/dL Total Bilirubin 1.10 (0.2-1.3) mg/dL AST 29 (14-36) U/L ALT 23 (0-35) U/L Alkaline Phosphatase 97 (38-126) U/L Serum Total Protein 8.5 H (6.3-8.2) g/dL Albumin 4.4 (3.5-5.0) g/dL Amylase 75 (30-110) U/L Lipase 78 (23-300) U/L TSH 3rd Generation 0.059 L (0.47-4.68) mIU/L Urine Color (YELLOW) Urine Appearance (CLEAR) Urine pH (5-6) Ur Specific [place] (1.005-1.025) Urine Protein (Negative) Urine Ketones (NEGATIVE) Urine Blood (0-5) Kvng/ul Urine Nitrite (NEGATIVE) Urine Bilirubin (NEGATIVE) Urine Urobilinogen (0-1) mg/dL Ur Leukocyte Esterase (NEGATIVE) Urine WBC (Auto) (0-5) /HPF Urine RBC (Auto) (0-2) /HPF U Epithel Cells (Auto) (FEW) /HPF Urine Bacteria (Auto) (NEGATIVE) /HPF Urine Mucus (Auto) (NEGATIVE) /HPF Urine Culture Reflexed (NO) Urine Glucose (NEGATIVE) mg/dL 08/13/20 Range/Units 16:26 WBC (4.0-10.5) K/mm3 RBC (4.1-5.4) M/mm3 Hgb (12.0-16.0) gm/dl Hct (35-47) % MCV (78-100) fl MCH (26-32) pg MCHC (32-36) g/dl RDW (11.5-14.0) % Plt Count (150-450) K/mm3 MPV (7.5-11.0) fl Gran % (36.0-66.0) % Eos # (Auto) (0-0.5) Absolute Lymphs (auto) (1.0-4.6) Absolute Monos (auto) (0.0-1.3) Lymphocytes % (24.0-44.0) % Monocytes % (0.0-12.0) % Eosinophils % (0.00-5.0) % Basophils % (0.0-0.4) % Absolute Granulocytes (1.4-6.9) Basophils # (0-0.4) Sodium (137-145) mmol/L Potassium (3.5-5.1) mmol/L Chloride (98-107) mmol/L Carbon Dioxide (22-30) mmol/L Anion Gap (5-15) MEQ/L BUN (7-17) mg/dL Creatinine (0.52-1.04) mg/dL Estimated GFR ML/MIN Glucose (74-106) mg/dL POC Glucometer 80 (74 to 106) mg/dL Hemoglobin A1c (4.5-6.0) % Lactic Acid (0.4-2.0) Calcium (8.4-10.2) mg/dL Total Bilirubin (0.2-1.3) mg/dL AST (14-36) U/L ALT (0-35) U/L Alkaline Phosphatase (38-126) U/L Serum Total Protein (6.3-8.2) g/dL Albumin (3.5-5.0) g/dL Amylase (30-110) U/L Lipase (23-300) U/L TSH 3rd Generation (0.47-4.68) mIU/L Urine Color (YELLOW) Urine Appearance (CLEAR) Urine pH (5-6) Ur Specific [place] (1.005-1.025) Urine Protein (Negative) Urine Ketones (NEGATIVE) Urine Blood (0-5) Kvng/ul Urine Nitrite (NEGATIVE) Urine Bilirubin (NEGATIVE) Urine Urobilinogen (0-1) mg/dL Ur Leukocyte Esterase (NEGATIVE) Urine WBC (Auto) (0-5) /HPF Urine RBC (Auto) (0-2) /HPF U Epithel Cells (Auto) (FEW) /HPF Urine Bacteria (Auto) (NEGATIVE) /HPF Urine Mucus (Auto) (NEGATIVE) /HPF Urine Culture Reflexed (NO) Urine Glucose (NEGATIVE) mg/dL - Radiology Impressions Radiology Exams & Impressions: Radiology Procedures Category Date Time Status ABDOMEN AND PELVIS W/0 CONTRAS [CT] Stat Exams 08/13/20 11:52 Completed Assessment/Plan (1) Right lower quadrant abdominal pain Current Visit: Yes Status: Acute Assessment & Plan: 64yo female rlq pain most consistent with acute appendicits. localized guarding rebound on exam. ct with infllamation thickening. some thickening of cecum also. -to OR likely appendectomy. did discuss posibilty of open/bowel resection.
[2020-08-13] MEDS ORDERED: BREVIBLOC 100 MG/10 ML IV ONE (21:00)
[2020-08-13] MEDS ORDERED: DILAUDID 2 MG INJECTION ONE (22:14)
[2020-08-13] MEDS ORDERED: BRIDION 200MG/2ML IV ONE (23:41)
[2020-08-13] MEDS ORDERED: MARCAINE 0.5%-EPI 1:200,000 VL IJ ONE (23:51)
[2020-08-13] MEDS ORDERED: Marcaine 0.5%/Epinephrine 10 ML ONE (23:51)
[2020-08-14 02:08] LABS: Appearance CLEAR (CLEAR); Bacteria NONE SEEN /HPF (NEGATIVE); Bilirubin NEGATIVE (NEGATIVE); Blood SMALL Ery/ul (0-5); Glucose >=500 mg/dL (NEGATIVE); Ketones SMALL (NEGATIVE); Leukocyte Esterase NEGATIVE (NEGATIVE); Nitrite NEGATIVE (NEGATIVE); Protein,Urine Dip NEGATIVE (Negative); Specific Gravity 1.026 (1.005-1.025); Urobilinogen 2 mg/dL (0-1); WBC 0-2 /HPF (0-5)
[2020-08-14] MEDS: Dextrose 5%-NS IV Solution 1000 ML 1,000 ML IV SCH ×3 (02:21→20:54)
[2020-08-14] MEDS: Sodium Chloride 0.9% 1000 ML 1,000 ML IV SCH ×3 (02:21→20:54)
[2020-08-14] MEDS: FLAGYL 500 MG IVPB 500 MG/100 ML BAG IV SCH ×4 (02:35→18:40)
[2020-08-14] MEDS: DILAUDID 2 MG INJECTION IV PRN (02:41)
[2020-08-14] MEDS ORDERED: DILAUDID 2 MG INJECTION IV ONE (04:37)
[2020-08-14] MEDS: DILAUDID 1 MG/1ML PCA IV PRN (05:08)
[2020-08-14 05:55] LABS: Absolute Neutrophil Ct (ANC) 15.58 (1.4-6.9); BASOPHIL % 0.1 % (0.0-0.4); Basophil (Absolute #) 0.01 (0-0.4); Eosinophil (Absolute #) 0 (0-0.5); Hemoglobin 11.5 gm/dl (12.0-16.0); Lymphocyte (Absolute #) 0.38 (1.0-4.6); Lymphocytes % 2.2 % (24.0-44.0); Mean Cell Volume 95.6 fl (78-100); Mean Corpuscular Hemoglobin 31.4 pg (26-32); Mean Corpuscular Hgb Concent. 32.9 g/dl (32-36); Mean Platelet Volume 10.3 fl (7.5-11.0); Monocyte (Absolute #) 0.92 (0.0-1.3); Monocytes % 5.4 % (0.0-12.0); Neutrophil % 92.3 % (36.0-66.0); Platelet Count 214 K/mm3 (150-450); Red Blood Count 3.66 M/mm3 (4.1-5.4); White Blood Count 16.9 K/mm3 (4.0-10.5)
[2020-08-14] MEDS ORDERED: TYLENOL 325 MG PO PRN (06:52)
[2020-08-14] MEDS ORDERED: MEDICATION INTERVENTION MC SCH (07:15)
[2020-08-14 07:17] LABS: ALBUMIN 3.1 g/dL (3.5-5.0); ALKALINE PHOSPHATASE 68 U/L (38-126); ANION GAP 15.7 MEQ/L (5-15); BLOOD UREA NITROGEN 12 mg/dL (7-17); CHLORIDE 105 mmol/L (98-107); Calcium 8.1 mg/dL (8.4-10.2); Carbon Dioxide 19 mmol/L (22-30); Creatinine 1 0.46 mg/dL (0.52-1.04); EST GLOMERULAR FILTRATION RATE > 60.0 ML/MIN; Glucose 142 mg/dL (74-106); Potassium 3.8 mmol/L (3.5-5.1); SGOT/AST 26 U/L (14-36); SGPT/ALT 20 U/L (0-35); SODIUM 136 mmol/L (137-145); Total Protein 6.2 g/dL (6.3-8.2)
[2020-08-14] MEDS ORDERED: HUMALOG SQ PRN (08:45)
[2020-08-14] MEDS ORDERED: LEVOTHYROXINE SODIUM 200 MCG PO SCH (10:00)
[2020-08-14] MEDS ORDERED: IPRATROPIUM BROMIDE INTRANASAL SCH (10:00)
[2020-08-14] MEDS ORDERED: Levofloxacin 500MG/100ML D5W 500 MG/100 ML BAG IV SCH (10:00)
[2020-08-14 10:34] LABS: Slide Review 1 YES
--- NOTE | 2020-08-14 10:55 | OP ---
SURGERY DATE: 08/13/2020 SURGERY TIME: 2052 PREOPERATIVE DIAGNOSIS: 1. ACUTE APPENDICITIS. POSTOPERATIVE DIAGNOSIS: 1. ACUTE APPENDICITIS, PERFORATED, WITH LOCALIZED PERITONITIS AND GANGRENOUS APPENDICITIS. PROCEDURE: 1. Laparoscopy. 2. Conversion to open right colectomy. SURGEON: Praful Álvarez M.D. ANESTHESIA: General. ESTIMATED BLOOD LOSS: 200 ml. CONDITION: Stable. COMPLICATIONS: None. SPECIMENS: 1. Right colectomy. HISTORY OF PRESENT ILLNESS: The patient is a 64 year-old female with a 4 day history of abdomen pain. She did have tenderness on the right abdomen on exam in the Emergency Department. Initial CT read was concerning for colitis. Official read came back concerning for appendicitis. General surgery was consulted. Discussion was had with the patient regarding risks of surgery including infection, bleeding, injury to nearby structure, hernia, need for conversion to open or possible bowel resection as well as nonoperative treatment and the patient elected to proceed with surgery. FINDINGS: On laparoscopy on mobilization of the terminal ileum and cecum, an abscess pocket was encountered. There was what looked like a gangrenous appendix. There was a free floating stool ball. Anatomy was distorted. The cecum felt hard. It seemed that the appendiceal stump was not healthy. It was started to convert to open. The cecum was totally mobilized. The appendix basically had disintegrated. The base of the appendix was not clearly identifiable. There was phlegmon with induration mostly of the mesentery. It was decided to proceed with right colectomy. [id number] functional end-to-end was performed. A right colectomy was performed. There was retroperitoneal infection. The right ureter was not clearly identified. Most of the dissection was blunt and felt to be away from the ureter. DESCRIPTION OF PROCEDURE: The patient was brought to the OR. General anesthesia was induced. She was placed supine with the left arm tucked. Sequential compression devices were applied and on. She was routinely prepped and draped. Time-out was performed. A Veress needle was inserted in the left upper quadrant. Pneumoperitoneum was established. A 5 mm Optiview trocar was placed infraumbilically. A 5 mm trocar was placed suprapubically. A 12 mm trocar was placed in the left lower quadrant. The abdomen was surveyed. There was some fluid in the pelvis right lower quadrant. This was suctioned. The cecum and terminal ileum were mobilized. An abscess pocket was encountered. There was christina stool ball and gangrenous necrotic probably appendix. This was all suctioned clear. The stool ball was taken out with stone scoops. The dissection was mostly performed bluntly. An additional 5 mm trocar was placed in the right mid abdomen for retraction. The right colon was mobilized laparoscopically. The terminal ileum was mobilized laparoscopically. The abscess tracked retrocecal in the retroperitoneum. With blunt dissection, the retroperitoneum was exposed. The right ureter was not clearly identified. After mobilizing the cecum, the area of the gangrenous appearing material and stool ball was difficult to distinguish. It appeared that the probable base of the appendix was not healthy. That area was hard and very indurated. It was felt best to proceed with formal resection. Case was converted to open. The midline laparotomy was made. Carried down into the abdomen. The right colon was mobilized the rest of the way. Hepatic flexure was mobilized. Duodenum was preserved. The right ureter was still not clearly identified, but the colon and terminal ileum were up away from the retroperitoneum. The transection margin was selected at the terminal ileum. Divided with a blue load MANAV. The transverse colon was taken proximal to the middle colic vessels. The mesentery was taken with the ligature. The ileocolics were doubly ligated and ligatured. The abdomen was thoroughly inspected. No other abnormalities. It was thoroughly irrigated and suctioned. There was adequate hemostasis. The right ureter was attempted to be identified. However, further dissection was aborted to avoid injury. The anastomosis was made with a blue load MANAV and a green load contour in a [id number] fashion. Antiperistaltic. The mesenteric defect was closed with 3-0 PDS. A 10 mm PHILOMENA was placed in the right gutter. This was done after began irrigating. NG was confirmed in the stomach. The 12 trocar site was closed with 0 PDS. The anastomosis was healthy and viable. Fascia was closed with running 0 PDS. Skin was loosely approximated with stables and 1/4" gauze was placed between the karol. All counts were correct. Sterile dressings were applied. The port sites were closed with karol. The patient was stable throughout the entire case. All counts were correct. There were plans for TAP blocks and extubation.
[2020-08-14] MEDS: Levofloxacin 500MG/100ML D5W 500 MG/100 ML BAG IV SCH (14:33)
[2020-08-14] MEDS ORDERED: Lactated Ringers 1,000 ML IV SCH (16:30)
[2020-08-14] MEDS: CLARITIN 10 MG PO SCH (16:50)
[2020-08-14] MEDS: SYNTHROID 100 MCG PO SCH (16:50)
[2020-08-14] MEDS: NEURONTIN 300 MG PO SCH ×2 (16:51→22:11)
[2020-08-14] MEDS: BENADRYL 25 MG CAPSULE PO SCH ×2 (16:51→22:11)
[2020-08-14] MEDS: D5W/0.45NS W/ 20mEq KCl 1000 ML 1,000 ML IV SCH (18:42)
[2020-08-14] MEDS ORDERED: NON-FORMULARY ITEM (Atorvastatin Calcium [Atorvastatin Calcium] 40 MG) PO SCH (22:00)
[2020-08-14] MEDS: ZOCOR 20MG PO SCH (22:12)
[2020-08-14] MEDS: Lotensin 10 MG PO SCH (22:12)
[2020-08-14] MEDS: xanAX 0.25 MG PO SCH (22:12)
[2020-08-14] MEDS: Flonase NASAL NS SCH (22:12)
[2020-08-14] MEDS: Singulair 10 MG PO SCH (22:16)
[2020-08-15] MEDS: FLAGYL 500 MG IVPB 500 MG/100 ML BAG IV SCH ×5 (00:21→23:35)
[2020-08-15] MEDS: D5W/0.45NS W/ 20mEq KCl 1000 ML 1,000 ML IV SCH ×2 (05:18→16:59)
[2020-08-15] MEDS: DILAUDID 1 MG/1ML PCA IV PRN (05:35)
[2020-08-15 06:02] LABS: Hematocrit 33.1 % (35-47); Hemoglobin 10.6 gm/dl (12.0-16.0); Mean Cell Volume 96.5 fl (78-100); Mean Corpuscular Hemoglobin 30.9 pg (26-32); Platelet Count 251 K/mm3 (150-450); Red Blood Count 3.43 M/mm3 (4.1-5.4); Red Cell Distribution Width 13.2 % (11.5-14.0); White Blood Count 12.5 K/mm3 (4.0-10.5)
[2020-08-15 06:11] LABS: ALBUMIN 2.9 g/dL (3.5-5.0); ALKALINE PHOSPHATASE 61 U/L (38-126); BLOOD UREA NITROGEN 9 mg/dL (7-17); CHLORIDE 104 mmol/L (98-107); Calcium 8.5 mg/dL (8.4-10.2); Carbon Dioxide 28 mmol/L (22-30); Creatinine 1 0.54 mg/dL (0.52-1.04); EST GLOMERULAR FILTRATION RATE > 60.0 ML/MIN; Glucose 153 mg/dL (74-106); Potassium 3.9 mmol/L (3.5-5.1); SGOT/AST 18 U/L (14-36); SGPT/ALT 16 U/L (0-35); SODIUM 137 mmol/L (137-145)
[2020-08-15 07:45] LABS: BAND 2 % (0.0-2.0); Eosinophil 1 % (0.00-3.0); Lymphocytes 8 % (24-44); Metamyelocyte 1 %; Monocyte 4 % (0.0-12.0); Neutrophils 84 % (36.0-66.0); Platelet Estimate NORMAL (NORMAL); Total Cells Counted 100
[2020-08-15 07:46] LABS: Toxic Granulation 1+
[2020-08-15] MEDS ORDERED: DILAUDID 2 MG INJECTION IV PRN (08:37)
[2020-08-15] MEDS: NEURONTIN 300 MG PO SCH ×2 (09:12→21:23)
[2020-08-15] MEDS: Norco 10/325 MG Tablet PO PRN ×4 (09:12→21:25)
[2020-08-15] MEDS: SYNTHROID 100 MCG PO SCH (09:12)
[2020-08-15] MEDS: CLARITIN 10 MG PO SCH (09:12)
[2020-08-15] MEDS: Levofloxacin 500MG/100ML D5W 500 MG/100 ML BAG IV SCH (09:12)
[2020-08-15] MEDS: BENADRYL 25 MG CAPSULE PO SCH ×2 (09:18→21:22)
[2020-08-15] MEDS: Flonase NASAL NS SCH (21:22)
[2020-08-15] MEDS: Singulair 10 MG PO SCH (21:23)
[2020-08-15] MEDS: Lotensin 10 MG PO SCH (21:23)
[2020-08-15] MEDS: ZOCOR 20MG PO SCH (21:24)
[2020-08-15] MEDS: xanAX 0.25 MG PO SCH (21:24)
[2020-08-16] MEDS: D5W/0.45NS W/ 20mEq KCl 1000 ML 1,000 ML IV SCH (02:16)
[2020-08-16] MEDS: Norco 10/325 MG Tablet PO PRN ×4 (03:42→19:43)
[2020-08-16 05:20] LABS: Hematocrit 31.6 % (35-47); Hemoglobin 10.3 gm/dl (12.0-16.0); Mean Cell Volume 95.5 fl (78-100); Mean Corpuscular Hemoglobin 31.1 pg (26-32); Mean Corpuscular Hgb Concent. 32.6 g/dl (32-36); Mean Platelet Volume 9.7 fl (7.5-11.0); Platelet Count 263 K/mm3 (150-450); Red Blood Count 3.31 M/mm3 (4.1-5.4); Red Cell Distribution Width 12.9 % (11.5-14.0); White Blood Count 11.2 K/mm3 (4.0-10.5)
[2020-08-16 05:37] LABS: ANION GAP 7.4 MEQ/L (5-15); BLOOD UREA NITROGEN 4 mg/dL (7-17); CHLORIDE 101 mmol/L (98-107); Calcium 8.2 mg/dL (8.4-10.2); Carbon Dioxide 27 mmol/L (22-30); Creatinine 1 0.34 mg/dL (0.52-1.04); EST GLOMERULAR FILTRATION RATE > 60.0 ML/MIN; Glucose 170 mg/dL (74-106); Potassium 3.4 mmol/L (3.5-5.1); SODIUM 132 mmol/L (137-145)
[2020-08-16] MEDS: FLAGYL 500 MG IVPB 500 MG/100 ML BAG IV SCH ×4 (05:40→23:55)
[2020-08-16 05:58] LABS: Eosinophil 3 % (0.00-3.0); Lymphocytes 19 % (24-44); Monocyte 4 % (0.0-12.0); Neutrophils 74 % (36.0-66.0); Total Cells Counted 100
[2020-08-16 06:00] LABS: Platelet Estimate NORMAL (NORMAL)
--- NOTE | 2020-08-16 09:23 | PCM.NOTE ---
Date and Time: 08/16/20919 Subjective Assessment: +flatus, pain controlled. patient seen sitting up in chair. tolerating full liquids, no bowel movement since surgery. very scant fluid in PHILOMENA, no fever documented Objective Exam General Appearance: no apparent distress Neurologic Exam: alert, oriented x 3 Wound Assessment: Skin/Wound Assessment Wound/Incision Assessment Start: 08/13/20 17:08 Text: Status: Active Freq: Q4H Protocol: Document 08/16/20 06:00 MG (Rec: 08/16/20 06:19 MG [id number]) Wound/Incision Assessment Midline Abdomen Wound Assessment Shift Assessment Wound Type Incision Wound Stage Non Pressure Wound Dressing Status Dry & Intact Drainage Amount Minimal Drainage Description Serosanguineous General Appearance Clean/Dry Surrounding Tissue [place] Primary Dressing iodiform Secondary Dressing all in one dressing Comment abdominal dressing intact, small amount of serosanguinous drainage noted and circled. PHILOMENA dressing CDI. No change noted. Upper Abdomen Drain Type PHILOMENA drain Drainage Description Serosanguineous Odor None/Absent Drainage Amount (ml) 10 Respiratory Exam: normal breath sounds, lungs clear, No respiratory distress Cardiovascular Exam: regular rate/rhythm, normal heart sounds Gastrointestinal/Abdomen Exam: soft, other (dressing c/d/i, scant serosang fluid in PHILOMENA drain), No normal bowel sounds (decreased) OBJECTIVE DATA Vital Signs: Vital Signs - 24 hr Temp Pulse Resp BP Pulse Ox 08/16/20 08:00 98.2 F 93 H 16 132/78 96 08/16/20 07:19 95 08/16/20 04:00 98.2 F 102 H 24 133/76 98 08/15/20 23:31 98.6 F 99 H 18 139/83 95 08/15/20 20:04 98.3 F 103 H 18 118/75 94 L 08/15/20 18:51 94 L 08/15/20 16:00 98.3 F 103 H 18 129/79 95 08/15/20 12:00 97.8 F 106 H 18 116/65 95 08/15/20 09:27 98 Pain Assessment - Last Documented Pain Intensity 4 Pain Scale Used 0-10 Pain Scale Intake and Output: Intake & Output 08/13/20 08/14/20 08/15/20 08/16/20 11:59 11:59 11:59 11:59 Intake Total 881 3597 2781 Output Total 900 2250 1420 Balance -19 1347 1361 Weight 77.564 kg 79.4 kg 80.8 kg 80.8 kg Lab Results: Lab Results-Last 24 Hours 08/15/20 08/15/20 08/15/20 Range/Units 11:51 16:47 21:12 WBC (4.0-10.5) K/mm3 RBC (4.1-5.4) M/mm3 Hgb (12.0-16.0) gm/dl Hct (35-47) % MCV (78-100) fl MCH (26-32) pg MCHC (32-36) g/dl RDW (11.5-14.0) % Plt Count (150-450) K/mm3 MPV (7.5-11.0) fl Segmented Neutrophils (36.0-66.0) % Lymphocytes (Manual) (24-44) % Monocytes (Manual) (0.0-12.0) % Eosinophils (Manual) (0.00-3.0) % Platelet Estimate (NORMAL) RBC Morphology Sodium (137-145) mmol/L Potassium (3.5-5.1) mmol/L Chloride (98-107) mmol/L Carbon Dioxide (22-30) mmol/L Anion Gap (5-15) MEQ/L BUN (7-17) mg/dL Creatinine (0.52-1.04) mg/dL Estimated GFR ML/MIN Glucose (74-106) mg/dL POC Glucometer 157 H 127 H 140 H (74 to 106) mg/dL Calcium (8.4-10.2) mg/dL 08/16/20 08/16/20 08/16/20 Range/Units 05:00 05:00 07:24 WBC 11.2 H (4.0-10.5) K/mm3 RBC 3.31 L (4.1-5.4) M/mm3 Hgb 10.3 L (12.0-16.0) gm/dl Hct 31.6 L (35-47) % MCV 95.5 (78-100) fl MCH 31.1 (26-32) pg MCHC 32.6 (32-36) g/dl RDW 12.9 (11.5-14.0) % Plt Count 263 (150-450) K/mm3 MPV 9.7 (7.5-11.0) fl Segmented Neutrophils 74 H (36.0-66.0) % Lymphocytes (Manual) 19 L (24-44) % Monocytes (Manual) 4 (0.0-12.0) % Eosinophils (Manual) 3 (0.00-3.0) % Platelet Estimate NORMAL (NORMAL) RBC Morphology NORMAL Sodium 132 L (137-145) mmol/L Potassium 3.4 L (3.5-5.1) mmol/L Chloride 101 (98-107) mmol/L Carbon Dioxide 27 (22-30) mmol/L Anion Gap 7.4 (5-15) MEQ/L BUN 4 L (7-17) mg/dL Creatinine 0.34 L (0.52-1.04) mg/dL Estimated GFR > 60.0 ML/MIN Glucose 170 H (74-106) mg/dL POC Glucometer 141 H (74 to 106) mg/dL Calcium 8.2 L (8.4-10.2) mg/dL Multi-Disciplinary Progress Notes: Multi-Disciplinary Progress Notes 08/15/20 10:00 Case Management Note by Jessica Valentin PATIENT DOING WELL THIS AM. DOES NOT ANTICIPATE ANY NEEDS AT DC AT THIS TIME. WILL CONTINUE TO FOLLOW AND EVAL FOR ANY DC NEEDS. Initialized on 08/15/20 10:00 - END OF NOTE Assessment/Plan (1) Acute appendicitis with rupture Current Visit: Yes Status: Acute Assessment & Plan: POD #3, tolerating full liquids. on levaquin/flagyl wbc trending down and no fever. abdomen is soft, +flatus. progressing nicely Code(s): K35.32 - ACUTE APPENDICITIS WITH PERF AND LOC PERITONITIS, W/O ABSCS (2) Type 2 diabetes mellitus, uncontrolled Current Visit: No Status: Acute Assessment & Plan: well controlled currently on sliding scale coverage Code(s): E11.65 - TYPE 2 DIABETES MELLITUS WITH HYPERGLYCEMIA
[2020-08-16] MEDS: NEURONTIN 300 MG PO SCH ×2 (09:43→21:52)
[2020-08-16] MEDS: SYNTHROID 100 MCG PO SCH (09:43)
[2020-08-16] MEDS: CLARITIN 10 MG PO SCH (09:43)
[2020-08-16] MEDS: BENADRYL 25 MG CAPSULE PO SCH ×2 (09:43→21:51)
[2020-08-16] MEDS: Levofloxacin 500MG/100ML D5W 500 MG/100 ML BAG IV SCH (10:54)
[2020-08-16] MEDS: Flonase NASAL NS SCH (21:51)
[2020-08-16] MEDS: xanAX 0.25 MG PO SCH (21:52)
[2020-08-16] MEDS: Singulair 10 MG PO SCH (21:52)
[2020-08-16] MEDS: Lotensin 10 MG PO SCH (21:52)
[2020-08-16] MEDS: ZOCOR 20MG PO SCH (21:53)
[2020-08-17] MEDS: FLAGYL 500 MG IVPB 500 MG/100 ML BAG IV SCH ×3 (05:29→17:52)
[2020-08-17 05:30] LABS: Hematocrit 34.2 % (35-47); Mean Corpuscular Hemoglobin 30.6 pg (26-32); Mean Corpuscular Hgb Concent. 32.2 g/dl (32-36); Mean Platelet Volume 9.4 fl (7.5-11.0); Platelet Count 270 K/mm3 (150-450)
[2020-08-17] MEDS: Norco 10/325 MG Tablet PO PRN ×4 (05:39→20:14)
[2020-08-17 05:49] LABS: ALBUMIN 2.9 g/dL (3.5-5.0); ALKALINE PHOSPHATASE 59 U/L (38-126); ANION GAP 6.7 MEQ/L (5-15); BLOOD UREA NITROGEN 3 mg/dL (7-17); CHLORIDE 101 mmol/L (98-107); Calcium 8.3 mg/dL (8.4-10.2); Carbon Dioxide 30 mmol/L (22-30); Creatinine 1 0.37 mg/dL (0.52-1.04); EST GLOMERULAR FILTRATION RATE > 60.0 ML/MIN; Glucose 149 mg/dL (74-106); MAGNESIUM 1.8 mg/dL (1.6-2.3); Potassium 3.4 mmol/L (3.5-5.1); SGOT/AST 17 U/L (14-36); SGPT/ALT 12 U/L (0-35); SODIUM 135 mmol/L (137-145)
[2020-08-17 07:49] LABS: BAND 1 % (0.0-2.0); Basophil 1 % (0.0-1.0); Eosinophil 4 % (0.00-3.0); Lymphocytes 10 % (24-44); Monocyte 9 % (0.0-12.0); Neutrophils 75 % (36.0-66.0); Platelet Estimate NORMAL (NORMAL); Total Cells Counted 100
[2020-08-17 07:50] LABS: Toxic Granulation 1+
--- NOTE | 2020-08-17 08:12 | PCM.DS ---
Discharge Summary Date of Admission: 08/13/20 13:42 Admitting Physician: JAMAAL BOTELLO DO Consults: Consults on Case 08/13/20 13:52 Consult Surgery ROUTINE Primary Care Provider: FLO ALANIZ Allergies Allergies blueberry Allergy (Verified 08/13/20 11:42) Fish Containing Products Allergy (Verified 08/13/20 11:41) melon Allergy (Verified 08/13/20 11:42) Penicillins Allergy (Verified 08/13/20 11:41) Hives strawberry Allergy (Verified 08/13/20 11:42) sulfametrole [Sulfametrole] Allergy (Verified 08/13/20 11:41) Hospital Summary - Hospital Course Hospital Course: patient arrived with abd pain, ct scan suspicious for acute appendicitis, had gross rupture and required open procedure with resection. doing great post op, tolerating po, pain controlled, wbc normal and no fever - Vitals & Intake/Output Vital Signs: Vital Signs Temperature 98.5 F 08/17/20 07:06 Pulse Rate 95 H 08/17/20 07:06 Respiratory Rate 18 08/17/20 07:06 Blood Pressure 117/67 08/17/20 07:06 O2 Sat by Pulse Oximetry 96 08/17/20 07:06 Intake & Output: Intake & Output 08/14/20 08/15/20 08/16/20 08/17/20 11:59 11:59 11:59 11:59 Intake Total 881 3597 2781 2413 Output Total 900 2250 1420 2060 Balance -19 1347 1361 353 Weight 79.4 kg 80.8 kg 80.8 kg 81.4 kg - Lab Result Diagrams: 08/17/20 05:05 08/17/20 05:05 Lab Results-Last 24 Hrs: Lab Results-Last 24 Hours 08/16/20 08/16/20 08/16/20 Range/Units 11:10 16:28 21:48 WBC (4.0-10.5) K/mm3 RBC (4.1-5.4) M/mm3 Hgb (12.0-16.0) gm/dl Hct (35-47) % MCV (78-100) fl MCH (26-32) pg MCHC (32-36) g/dl RDW (11.5-14.0) % Plt Count (150-450) K/mm3 MPV (7.5-11.0) fl Segmented Neutrophils (36.0-66.0) % Band Neutrophils (0.0-2.0) % Lymphocytes (Manual) (24-44) % Monocytes (Manual) (0.0-12.0) % Eosinophils (Manual) (0.00-3.0) % Basophils (Manual) (0.0-1.0) % Toxic Granulation Platelet Estimate (NORMAL) Sodium (137-145) mmol/L Potassium (3.5-5.1) mmol/L Chloride (98-107) mmol/L Carbon Dioxide (22-30) mmol/L Anion Gap (5-15) MEQ/L BUN (7-17) mg/dL Creatinine (0.52-1.04) mg/dL Estimated GFR ML/MIN Glucose (74-106) mg/dL POC Glucometer 175 H 164 H 131 H (74 to 106) mg/dL Calcium (8.4-10.2) mg/dL Magnesium (1.6-2.3) mg/dL Total Bilirubin (0.2-1.3) mg/dL AST (14-36) U/L ALT (0-35) U/L Alkaline Phosphatase (38-126) U/L Serum Total Protein (6.3-8.2) g/dL Albumin (3.5-5.0) g/dL 08/17/20 08/17/20 08/17/20 Range/Units 05:05 05:05 06:57 WBC 10.0 (4.0-10.5) K/mm3 RBC 3.60 L (4.1-5.4) M/mm3 Hgb 11.0 L (12.0-16.0) gm/dl Hct 34.2 L (35-47) % MCV 95.0 (78-100) fl MCH 30.6 (26-32) pg MCHC 32.2 (32-36) g/dl RDW 13.0 (11.5-14.0) % Plt Count 270 (150-450) K/mm3 MPV 9.4 (7.5-11.0) fl Segmented Neutrophils 75 H (36.0-66.0) % Band Neutrophils 1 (0.0-2.0) % Lymphocytes (Manual) 10 L (24-44) % Monocytes (Manual) 9 (0.0-12.0) % Eosinophils (Manual) 4 H (0.00-3.0) % Basophils (Manual) 1 (0.0-1.0) % Toxic Granulation 1+ Platelet Estimate NORMAL (NORMAL) Sodium 135 L (137-145) mmol/L Potassium 3.4 L (3.5-5.1) mmol/L Chloride 101 (98-107) mmol/L Carbon Dioxide 30 (22-30) mmol/L Anion Gap 6.7 (5-15) MEQ/L BUN 3 L (7-17) mg/dL Creatinine 0.37 L (0.52-1.04) mg/dL Estimated GFR > 60.0 ML/MIN Glucose 149 H (74-106) mg/dL POC Glucometer 144 H (74 to 106) mg/dL Calcium 8.3 L (8.4-10.2) mg/dL Magnesium 1.8 (1.6-2.3) mg/dL Total Bilirubin 0.70 (0.2-1.3) mg/dL AST 17 (14-36) U/L ALT 12 (0-35) U/L Alkaline Phosphatase 59 (38-126) U/L Serum Total Protein 6.0 L (6.3-8.2) g/dL Albumin 2.9 L (3.5-5.0) g/dL Micro Results-Entire Visit: Microbiology 08/14/20 11:53 Urine Culture - Final Catherized NO GROWTH 08/13/20 22:00 Urine Culture - Final Urine, Void <10K NORMAL SKIN IAM PROBABLE SKIN CONTAMINANT Accuchecks Date 08/17/20 Date 08/16/20 Time 07:07 - Procedures and Test Procedures and Tests throughout Hospitalization: Therapy Orders & Screens 08/13/20 17:51 EKG ROUTINE Comment: Diagnosis: Colitis acute appendicitis 08/14/20 07:08 Oxygen NASAL CANNULA 2 lpm Comment: Diagnosis: Colitis acute appendicitis 08/14/20 11:51 Incentive Spirometry TID Comment: Diagnosis: Colitis acute appendicitis Discharge Exam General Appearance: no apparent distress, alert Respiratory Exam: normal breath sounds, lungs clear, No respiratory distress Cardiovascular Exam: regular rate/rhythm, normal heart sounds Gastrointestinal/Abdomen Exam: soft, normal bowel sounds, other (dressing c/d/i, PHILOMENA drain scant ss fluid) Extremity Exam: normal inspection, normal range of motion Wound Assessment: Skin/Wound Assessment Wound/Incision Assessment Start: 08/13/20 17:08 Text: Status: Active Freq: Q4H Protocol: Document 08/17/20 05:46 MG (Rec: 08/17/20 05:48 MG [id number]) Wound/Incision Assessment Midline Abdomen Wound Assessment Shift Assessment Wound Type Incision Wound Stage Non Pressure Wound Dressing Status Dry & Intact Drainage Amount Minimal Drainage Description Serosanguineous General Appearance Clean/Dry Surrounding Tissue [place] Primary Dressing iodiform Secondary Dressing all in one dressing Comment Dressing intact with minimal amount of shadowing noted. PHILOMENA dressing CDI. No change noted Upper Abdomen Drain Type PHILOMENA drain Drainage Description Serosanguineous Odor None/Absent Drainage Amount (ml) 10 Final Diagnosis/Problem List - Final Discharge Diagnosis/Problem (1) Acute appendicitis with rupture Current Visit: Yes Status: Acute Assessment & Plan: home per surgery, to f/u with Dr Álvarez and Byron on discharge Code(s): K35.32 - ACUTE APPENDICITIS WITH PERF AND LOC PERITONITIS, W/O ABSCS (2) Type 2 diabetes mellitus, uncontrolled Current Visit: No Status: Acute Code(s): E11.65 - TYPE 2 DIABETES MELLITUS WITH HYPERGLYCEMIA - Discharge Disposition: Home, Self-Care Condition: Stable Prescriptions: Continue Gabapentin 300 mg PO BID ALPRAZolam [Xanax 0.5 mg] 0.25 mg PO HS Cilostazol [Pletal] 50 mg PO BID Montelukast Sodium [Singulair] 10 mg PO HS Metformin HCl 500 mg [Glucophage 500 MG] 1,000 mg DAILY Liraglutide [Victoza 2-Oc] 0.6 mg IJ DAILY Levothyroxine Sodium [Euthyrox] 200 mcg PO DAILY Ipratropium [place] 2 spray INTRANASAL BID Fluticasone Propionate [Flonase NASAL] 1 spray INTRANASAL HS Ergocalciferol (Vitamin D2) [Vitamin D2] 50,000 unit PO WEEKLY Empagliflozin [Jardiance] 10 mg PO DAILY Benazepril HCl 10 mg PO HS Atorvastatin Calcium 40 mg PO HS Loratadine 10 mg [Claritin 10 mg] 10 mg PO DAILY Diphenhydramine HCl 25 mg [Benadryl 25 mg Capsule] 25 mg PO BID Acetaminophen 325 mg [Tylenol 325 mg] 650 mg PO Q4H PRN PRN PRN Reason: Pain Follow up with: FLO ALANIZ [Primary Care Provider] - 08/25/20 9:30 am FARNAZ ÁLVAREZ MD [ASSOCIATE STAFF] - 1 Week
[2020-08-17] MEDS: BENADRYL 25 MG CAPSULE PO SCH ×2 (09:25→21:42)
[2020-08-17] MEDS: CLARITIN 10 MG PO SCH (09:25)
[2020-08-17] MEDS: SYNTHROID 100 MCG PO SCH (09:26)
[2020-08-17] MEDS: Levofloxacin 500MG/100ML D5W 500 MG/100 ML BAG IV SCH (09:26)
[2020-08-17] MEDS: NEURONTIN 300 MG PO SCH ×2 (09:26→21:44)
[2020-08-17] MEDS: Miralax Powder 17GM PACKET PO SCH (12:39)
[2020-08-17] MEDS: Lotensin 10 MG PO SCH (21:44)
[2020-08-17] MEDS: Singulair 10 MG PO SCH (21:44)
[2020-08-17] MEDS: Flonase NASAL NS SCH (21:44)
[2020-08-17] MEDS: xanAX 0.25 MG PO SCH (21:45)
[2020-08-17] MEDS: ZOCOR 20MG PO SCH (21:45)
[2020-08-18] MEDS: FLAGYL 500 MG IVPB 500 MG/100 ML BAG IV SCH ×3 (00:02→11:12)
[2020-08-18] MEDS: Norco 10/325 MG Tablet PO PRN ×3 (05:41→17:52)
--- NOTE | 2020-08-18 08:10 | PCM.NOTE ---
Date and Time: 08/18/20 08 Subjective Assessment: patient tolerating po intake, +flatus but no bowel movement. pain is controlled, overall she is ambulating with assistance and seems to be improved Objective Exam General Appearance: no apparent distress Neurologic Exam: alert, oriented x 3 Wound Assessment: Skin/Wound Assessment Wound/Incision Assessment Start: 08/13/20 17:08 Text: Status: Active Freq: Q4H Protocol: Document 08/18/20 06:00 MG (Rec: 08/18/20 06:13 MG [id number]) Wound/Incision Assessment Midline Abdomen Wound Assessment Shift Assessment Wound Type Incision Wound Stage Non Pressure Wound Dressing Status Dry & Intact Drainage Amount Minimal Drainage Description Serous Primary Dressing [place] dressing Comment [place] dressing intact with minimal amount of shadowing noted. Respiratory Exam: normal breath sounds, lungs clear, No respiratory distress Cardiovascular Exam: regular rate/rhythm, normal heart sounds Gastrointestinal/Abdomen Exam: soft, other (dressing c/d/i), No tenderness, No distention Extremity Exam: normal inspection, normal range of motion OBJECTIVE DATA Vital Signs: Vital Signs - 24 hr Temp Pulse Resp BP Pulse Ox 08/18/20 07:09 98.5 F 93 H 18 130/63 96 08/18/20 04:00 98.7 F 94 H 20 148/71 96 08/17/20 23:34 98.5 F 91 H 20 146/79 97 08/17/20 19:36 97.9 F 99 H 18 141/77 97 08/17/20 16:00 98.2 F 98 H 18 153/78 99 08/17/20 11:37 16 08/17/20 11:03 98.2 F 94 H 16 119/68 97 Pain Assessment - Last Documented Pain Intensity 3 Pain Scale Used 0-10 Pain Scale Intake and Output: Intake & Output 08/15/20 08/16/20 08/17/20 08/18/20 11:59 11:59 11:59 11:59 Intake Total 3597 2781 2773 1430 Output Total 2250 1420 2615 2355 Balance 1347 1361 158 -925 Weight 80.8 kg 80.8 kg 81.4 kg 82.1 kg Lab Results: Lab Results-Last 24 Hours 08/17/20 08/17/20 08/17/20 Range/Units 10:59 16:03 20:13 POC Glucometer 162 H 181 H 159 H (74 to 106) mg/dL 08/18/20 Range/Units 07:01 POC Glucometer 156 H (74 to 106) mg/dL Multi-Disciplinary Progress Notes: Multi-Disciplinary Progress Notes 08/17/20 11:25 Case Management Note by Jessica Valentin CONTINUING TO MONITOR DC NEEDS. PATIENT TO HAVE WICK AND PHILOMENA DRAIN PULLED TODAY. AFTER THAT, DO NOT ANTICIPATE ANY NEEDS FOR DC. Initialized on 08/17/20 11:25 - END OF NOTE Assessment/Plan (1) Acute appendicitis with rupture Current Visit: Yes Status: Acute Assessment & Plan: on levaquin and flagyl, doing well. home when released by surgery Code(s): K35.32 - ACUTE APPENDICITIS WITH PERF AND LOC PERITONITIS, W/O ABSCS (2) Type 2 diabetes mellitus, uncontrolled Current Visit: No Status: Acute Code(s): E11.65 - TYPE 2 DIABETES MELLITUS WITH HYPERGLYCEMIA
[2020-08-18] MEDS: CLARITIN 10 MG PO SCH (09:45)
[2020-08-18] MEDS: BENADRYL 25 MG CAPSULE PO SCH (09:45)
[2020-08-18] MEDS: SYNTHROID 100 MCG PO SCH (09:45)
[2020-08-18] MEDS: NEURONTIN 300 MG PO SCH (09:45)
[2020-08-18] MEDS: Miralax Powder 17GM PACKET PO SCH (09:46)
[2020-08-18] MEDS: Levofloxacin 500MG/100ML D5W 500 MG/100 ML BAG IV SCH (09:46)
[2020-08-18] MEDS ORDERED: VITAMIN D2 PO SCH (10:00)
[2020-08-18 16:17] VITALS: BP 161/85; PULSE 108; O2SAT 98
== END 2020-08-18 18:45 | disposition home or self-care (01) | DRG 331 ==
LOC: ED 11:22 → MED SURG 13:42
PROVIDERS: ADMIT Family Medicine; ATTEND Family Medicine
PROC: 0DTJ4ZZ Resection of Appendix, Percutaneous Endoscopic Approach (ICD-10-PCS; principal; 2020-08-13)
PROC: 0DBF0ZZ Excision of Right Large Intestine, Open Approach (ICD-10-PCS; 2020-08-13)
DX: K35.32 Acute appendicitis with perforation, localized peritonitis, and gangrene, without abscess (principal); K35.31 Acute appendicitis with localized peritonitis and gangrene, without perforation; E11.65 Type 2 diabetes mellitus with hyperglycemia; I10 Essential (primary) hypertension; E03.9 Hypothyroidism, unspecified; E78.00 Pure hypercholesterolemia, unspecified; Z79.899 Other long term (current) drug therapy
CPT/HCPCS: 36000; 36415; 64488; 74176; 76937; 76942; 80048; 80053; 81001; 82150; 82962; 83036; 83605; 83690; 83735; 84443; 85025; 87086; 88307; 93005; 94760; 94762; 96360; 96365; 96374; 96375; 99284; J0330; J1170; J1956; J2250; J2405; J2704; J3010; L0625; A9270-GY

== ENCOUNTER 2023-09-16 20:44 | Emergency (ER) | payer MEDICARE, OTHER ==
[2023-09-16 21:26] VITALS: RESP 16; TEMP 97.4; O2SAT 98
--- NOTE | 2023-09-16 21:42 | ERPHSYRPT ---
- History of Present Illness Time Seen by Provider: 09/16/23 21:10 Source: patient Exam Limitations: no limitations Patient Subjective Stated Complaint: Pt reports she had a total knee replacement yesterday completed on 09/15/23 at [facility] by Dr Lopez. Today it st arted bleeding and they were told if blood was seen around the dressing to go to the ER. Triage Nursing Assessment: Pt alert and oriented x3. No apparent respiratory distress. Wheeled to ED cot by staff, transferred from wheelchair to bed with assist x1. Skin w/p/d. Small amount of blood noted on edges of dressing. Physician History: Patient is a 67-year-old female postop day 1 from total knee arthroplasty. Patient observed drainage from the dressing. Patient became concerned. Patient called her surgeon's service number and was advised to come to the ED for evaluation. No pain no trauma. Patient reinforced the postsurgical dressing with a female napkin. No trauma. No falls. Patient voices no other complaints or concerns at this time. Portions of this note were created with voice recognition technology. There may be grammatical, spelling, punctuation or sound alike errors Timing/Duration: today Severity: mild Modifying Factors: Improves With: nothing Associated Symptoms: denies symptoms Allergies/Adverse Reactions: blueberry Allergy (Verified 09/16/23 21:16) Fish Containing Products Allergy (Verified 09/16/23 21:16) melon Allergy (Verified 09/16/23 21:16) Penicillins Allergy (Verified 09/16/23 21:16) Hives strawberry Allergy (Verified 09/16/23 21:16) sulfametrole [Sulfametrole] Allergy (Verified 09/16/23 21:16) Home Medications: ALPRAZolam [Xanax 0.5 mg] 0.25 mg PO HS 02/19/15 [History] Cilostazol [Pletal] 50 mg PO BID 02/19/15 [History] Gabapentin 300 mg PO BID 02/19/15 [History] Montelukast Sodium [Singulair] 10 mg PO HS 06/19/16 [History] Acetaminophen 325 mg [Tylenol 325 mg] 650 mg PO Q4H PRN PRN 08/13/20 [History] Atorvastatin Calcium 40 mg PO HS 08/13/20 [History] Benazepril HCl 10 mg PO HS 08/13/20 [History] Diphenhydramine HCl 25 mg [Benadryl 25 mg Capsule] 25 mg PO BID 08/13/20 [History] Empagliflozin [Jardiance] 10 mg PO DAILY 08/13/20 [History] Ergocalciferol (Vitamin D2) [Vitamin D2] 50,000 unit PO WEEKLY 08/13/20 [History] Fluticasone Propionate [Flonase NASAL] 1 spray INTRANASAL HS 08/13/20 [History] Ipratropium [place] 2 spray INTRANASAL BID 08/13/20 [History] Levothyroxine Sodium [Euthyrox] 200 mcg PO DAILY 08/13/20 [History] Liraglutide [Victoza 2-Oc] 0.6 mg IJ DAILY 08/13/20 [History] Loratadine 10 mg [Claritin 10 mg] 10 mg PO DAILY 08/13/20 [History] Metformin HCl 500 mg [Glucophage 500 MG] 1,000 mg DAILY 08/13/20 [History] Hx Tetanus, Diphtheria Vaccination/Date Given: No Hx Influenza Vaccination/Date Given: No Hx Pneumococcal Vaccination/Date Given: No Travel Risk - International Travel Have you traveled outside of the country in past 3 weeks: No - Coronavirus Screening Are you exhibiting any of the following symptoms?: No Close contact with a COVID-19 positive Pt in past 14-21 Days: No - Vaccine Status Have you recieved a Covid-19 vaccination: No - Review of Systems Constitutional: No Symptoms, No Fever, No Chills Eyes: No Symptoms Ears, Nose, & Throat: No Symptoms Respiratory: No Symptoms, No Cough, No Dyspnea Cardiac: No Symptoms, No Chest Pain, No Edema, No Syncope Abdominal/Gastrointestinal: No Symptoms, No Abdominal Pain, No Nausea, No Vomiting, No Diarrhea Genitourinary Symptoms: No Symptoms, No Dysuria Musculoskeletal: No Symptoms, No Back Pain, No Neck Pain Skin: No Symptoms, No Rash Neurological: No Symptoms, No Dizziness, No Focal Weakness, No Sensory Changes Psychological: No Symptoms Endocrine: No Symptoms Hematologic/Lymphatic: No Symptoms Immunological/Allergic: No Symptoms All Other Systems: Reviewed and Negative - Past Medical History Pertinent Past Medical History: Yes Neurological History: Peripheral Neuropathy Cardiac History: High Cholesterol, Hypertension, Peripheral Vascular Disease Respiratory History: No Pertinent History Endocrine Medical History: Diabetes Type II, Hypothyroidism Musculoskeletal History: Arthritis GI Medical History: No Pertinent History History: No Pertinent History Psycho-Social History: Anxiety Female Reproductive Disorders: No Pertinent History - Past Surgical History Past Surgical History: Yes Neuro Surgical History: No Pertinent History Cardiac: Vascular Surgery Respiratory: No Pertinent History Gastrointestinal: Other Genitourinary: No Pertinent History Musculoskeletal: Orthopedic Surgery Female Surgical History: No Pertinent History Other Surgical History: ABDOMINAL ADHESION SURGERY BACK SURGERY LEG SURGERY FOR VEIN BLOCKAGE, LEFT ROTATOR CUFF REPAIR, Right knee replacement 09/15/23 - Social History Smoking Status: Never smoker Exposure to second hand smoke: No Drug Use: none Patient Lives Alone: Yes - Nursing Vital Signs Nursing Vital Signs: Initial Vital Signs Temperature 97.4 F 09/16/23 21:09 Pulse Rate 118 H 09/16/23 21:09 Respiratory Rate 16 09/16/23 21:09 Blood Pressure 151/88 09/16/23 21:09 O2 Sat by Pulse Oximetry 98 09/16/23 21:09 Pain Scale Pain Intensity 8 - Physical Exam General Appearance: no apparent distress, alert Eye Exam: PERRL/EOMI, eyes nml inspection Ears, Nose, Throat Exam: normal ENT inspection Neck Exam: normal inspection, full range of motion Respiratory Exam: normal breath sounds, lungs clear, No respiratory distress Cardiovascular Exam: regular rate/rhythm, normal heart sounds, normal peripheral pulses Gastrointestinal/Abdomen Exam: soft, normal bowel sounds, No tenderness, No mass Back Exam: normal inspection, normal range of motion, No CVA tenderness, No vertebral tenderness Extremity Exam: normal inspection, normal range of motion, pelvis stable Neurologic Exam: alert, oriented x 3, cooperative, normal mood/affect, nml cerebellar function, nml station & gait, sensation nml, No motor deficits Skin Exam: normal color, warm, dry, No rash Lymphatic Exam: No adenopathy SpO2 Interpretation: normal SpO2: 98 O2 Delivery: Room Air - Course Nursing assessment & vital signs reviewed: Yes - Progress Progress: improved Progress Note: 67-year-old female presents to our ED for a wound check. Patient is post op day 1 status post total knee replacement. Patient is here for a wound check. The dressing is intact. There are some oozing just proximal to the dressing. The involved extremity is neurovascular tact distally. Compartments are soft cap refill less than 2 seconds. Case discussed with on-call orthopedic surgery. Patient will be seen in clinic tomorrow at 8 AM. In light of the sterile environment within the postoperative dressing and the fact the patient will be seen in the morning and the extremity is neurovascular tact distally and there is no active drainage we decided to maintain the dressing until clinic visit tomorrow morning. No indication for further work-up. Patient voices no other complaints or concerns at this time. Portions of this note were created with voice recognition technology. There may be grammatical, spelling, punctuation or sound alike errors Complexity of problems addressed is low acute uncomplicated Complex of data reviewed and analyzed is moderate. No specialized testing ordered. Diagnosis made based on history and physical examination. However management discussed with on-call orthopedic surgeon. Risk complication and or risk morbidity/mortality patient management is low. We will discharge home. Vital stable. Time spent to discharge patient is approximately 10 minutes. Plan of care established for shared decision making. No social determinants of health present to impede follow-up. 09/16/23 21:52 Counseled pt/family regarding: diagnosis, need for follow-up, rad results - Departure Departure Disposition: Home Clinical Impression: Wound check, abscess Condition: Stable Critical Care Time: No Referrals: FLO ALANIZ [Primary Care Provider] - Follow up/PCP as directed Additional Instructions: Discharge/Care Plan JOCELYNThiagoJAYDA LISET was seen on 09/16/23 in the Emergency Room. The patient was counseled regarding Diagnosis,Lab results, Imaging studies, need for follow up and when to return to the Emergency Room. Prescriptions given: Discharge Note I have spoken with the patient and/or caregivers. I have explained the patient's condition, diagnosis and treatment plan based on the information available to me at this time. I have answered the patient's and/or caregiver's questions and addressed any concerns. The patient and/or caregivers have as good understanding of the patient's diagnosis, condition and treatment plan as can be expected at this point. The vital signs have been stable. The patient's condition is stable and appropriate for discharge from the emergency department. The patient will pursue further outpatient evaluation with the primary care physician or other designated or consulting physician as outlined in the discharge instructions. The patient and/or caregivers are agreeable to this plan of care and follow-up instructions have been explained in detail. The patient and/or caregivers have received these instruction. The patient/and or caregivers are aware that any significant change in condition or worsening of symptoms should prompt an immediate return to this or the closest emergency department or call 911.
[2023-09-16 22:04] VITALS: BP 134/79; PULSE 98
== END 2023-09-16 22:05 | disposition home or self-care (01) ==
LOC: ED 20:44
DX: T81.41XA Infection following a procedure, superficial incisional surgical site, initial encounter (principal); E78.5 Hyperlipidemia, unspecified; I10 Essential (primary) hypertension; E11.42 Type 2 diabetes mellitus with diabetic polyneuropathy; Z79.02 Long term (current) use of antithrombotics/antiplatelets; Z79.84 Long term (current) use of oral hypoglycemic drugs; Z79.85 Long-term (current) use of injectable non-insulin antidiabetic drugs; Z79.899 Other long term (current) drug therapy; Z28.310 Unvaccinated for COVID-19
CPT/HCPCS: 99282

== ENCOUNTER 2023-12-19 13:08 | Emergency (ER) | payer MEDICARE, OTHER ==
--- NOTE | 2023-12-19 13:19 | ERPHSYRPT ---
- History of Present Illness Time Seen by Provider: 12/19/23 13:19 Source: patient, EMS Exam Limitations: no limitations Physician History: This is a 67-year-old white female patient of Dr. Matthews who was at home and was walking in her house to get coffee when she noticed the room started to spin. She woke up and she was on the floor. She denies specific injury. She has no headache. She has no chest pain. She has no shortness of breath. She has no abdominal pain. This occurred approxi-1 hour prior to arrival. Patient was brought into the hospital by the terrazzo worker service. Patient has a history of peripheral neuropathy, hyperlipidemia, hypertension, peripheral vascular disease, diabetes, hypothyroidism, anxiety and arthritis. Timing/Duration: today Severity: mild Character of Deficits: none Deficits: no difficulties Baseline/Normal Cognition: alert oriented x 3 Current Cognition: alert oriented x 3 Baseline Gait: walks w/o assistance Associated Symptoms: other (Mild dizziness) Allergies/Adverse Reactions: blueberry Allergy (Verified 12/19/23 13:13) Fish Containing Products Allergy (Verified 12/19/23 13:13) melon Allergy (Verified 12/19/23 13:13) Penicillins Allergy (Verified 12/19/23 13:13) Hives strawberry Allergy (Verified 12/19/23 13:13) sulfametrole [Sulfametrole] Allergy (Verified 12/19/23 13:13) Home Medications: ALPRAZolam [Xanax 0.5 mg] 0.25 mg PO HS 02/19/15 [History] Cilostazol [Pletal] 50 mg PO BID 02/19/15 [History] Gabapentin 300 mg PO BID 02/19/15 [History] Montelukast Sodium [Singulair] 10 mg PO HS 06/19/16 [History] Acetaminophen 325 mg [Tylenol 325 mg] 650 mg PO Q4H PRN PRN 08/13/20 [History] Atorvastatin Calcium 40 mg PO HS 08/13/20 [History] Benazepril HCl 10 mg PO HS 08/13/20 [History] Diphenhydramine HCl 25 mg [Benadryl 25 mg Capsule] 25 mg PO BID 08/13/20 [History] Empagliflozin [Jardiance] 10 mg PO DAILY 08/13/20 [History] Ergocalciferol (Vitamin D2) [Vitamin D2] 50,000 unit PO WEEKLY 08/13/20 [History] Fluticasone Propionate [Flonase NASAL] 1 spray INTRANASAL HS 08/13/20 [History] Ipratropium [place] 2 spray INTRANASAL BID 08/13/20 [History] Levothyroxine Sodium [Euthyrox] 200 mcg PO DAILY 08/13/20 [History] Liraglutide [Victoza 2-Oc] 0.6 mg IJ DAILY 08/13/20 [History] Loratadine 10 mg [Claritin 10 mg] 10 mg PO DAILY 08/13/20 [History] Metformin HCl 500 mg [Glucophage 500 MG] 1,000 mg DAILY 08/13/20 [History] Hx Tetanus, Diphtheria Vaccination/Date Given: No Hx Influenza Vaccination/Date Given: No Hx Pneumococcal Vaccination/Date Given: No Travel Risk - International Travel Have you traveled outside of the country in past 3 weeks: No - Coronavirus Screening Are you exhibiting any of the following symptoms?: No Close contact with a COVID-19 positive Pt in past 14-21 Days: No - Vaccine Status Have you recieved a Covid-19 vaccination: No - Review of Systems Constitutional: No Symptoms Eyes: No Symptoms Ears, Nose, & Throat: No Symptoms Respiratory: No Symptoms Cardiac: No Symptoms Abdominal/Gastrointestinal: No Symptoms Genitourinary Symptoms: No Symptoms Musculoskeletal: No Symptoms Skin: No Symptoms Neurological: Dizziness Psychological: No Symptoms (Mild and resolved) Endocrine: No Symptoms Hematologic/Lymphatic: No Symptoms Immunological/Allergic: No Symptoms - Past Medical History Pertinent Past Medical History: Yes Neurological History: Peripheral Neuropathy Cardiac History: High Cholesterol, Hypertension, Peripheral Vascular Disease Respiratory History: No Pertinent History Endocrine Medical History: Diabetes Type II, Hypothyroidism Musculoskeletal History: Arthritis GI Medical History: No Pertinent History History: No Pertinent History Psycho-Social History: Anxiety Female Reproductive Disorders: No Pertinent History - Past Surgical History Past Surgical History: Yes Neuro Surgical History: No Pertinent History Cardiac: Vascular Surgery Respiratory: No Pertinent History Gastrointestinal: Other Genitourinary: No Pertinent History Musculoskeletal: Orthopedic Surgery Female Surgical History: No Pertinent History Other Surgical History: ABDOMINAL ADHESION SURGERY BACK SURGERY LEG SURGERY FOR VEIN BLOCKAGE, LEFT ROTATOR CUFF REPAIR, Right knee replacement 09/15/23 - Social History Smoking Status: Never smoker Exposure to second hand smoke: No Drug Use: none Patient Lives Alone: Yes - Nursing Vital Signs Nursing Vital Signs: Initial Vital Signs Temperature 97.4 F 12/19/23 13:33 Pulse Rate 100 H 12/19/23 13:33 Respiratory Rate 20 12/19/23 13:33 Blood Pressure 179/94 12/19/23 13:33 O2 Sat by Pulse Oximetry 97 12/19/23 13:33 Pain Scale Pain Intensity 0 - [place] Coma Scale Best Eye Response ([place]): (4) open spontaneously Best Verbal Response ([place]): (5) oriented Best Motor Response ([place]): (6) obeys commands Kevin Total: 15 - Physical Exam General Appearance: no apparent distress, alert, anxiety Eye Exam: bilateral eye: normal inspection, PERRL, EOMI Ears, Nose, Throat Exam: normal ENT inspection, TMs normal, pharynx normal, moist mucous membranes Neck Exam: normal inspection, non-tender, supple, full range of motion Respiratory: normal breath sounds, lungs clear, airway intact, No chest tenderness, No respiratory distress Cardiovascular: regular rate/rhythm, normal heart sounds, normal peripheral pulses Gastrointestinal: soft, normal bowel sounds, No tenderness Pelvic Exam: not done Rectal Exam: not done Back Exam: normal inspection, normal range of motion, No CVA tenderness, No vertebral tenderness Extremity Exam: normal inspection, normal range of motion, pelvis stable Mental Status: alert, oriented x 3, 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 Exam: normal hearing, normal speech, PERRL, tongue midline Coordination/Gait: normal finger to nose Motor/Sensory: no motor deficit, no sensory deficit, no pronator drift Skin Exam: normal color, warm, dry SpO2 Interpretation: normal O2 Delivery: Room Air - Course Nursing assessment & vital signs reviewed: Yes EKG Interpreted by Me: Sinus Tach, NORMAL AXIS, NORMAL INTERVALS, NORMAL QRS, NORMAL ST-T, Other (No acute ischemic changes on today's twelve-lead EKG) Ordered Tests: Active Orders 24 hr Category Date Time Status [employer] STAT Care 12/19/23 13:31 Active EKG-ER Only STAT Care 12/19/23 13:30 Active IV Insertion STAT Care 12/19/23 13:30 Active Pulse Oximetry (ED) STAT Care 12/19/23 13:30 Active HEAD WITHOUT CONTRAST [CT] Stat Exams 12/19/23 13:30 Completed CBC W DIFF Stat Lab 12/19/23 13:45 Completed CMP Stat Lab 12/19/23 13:45 Completed TROPONIN Q4H Lab 12/19/23 13:45 Completed TROPONIN Q4H Lab 12/19/23 17:45 Ordered TROPONIN Q4H Lab 12/19/23 21:45 Ordered TSH [TSH, 3RD Generation] Stat Lab 12/19/23 13:15 Received UA W/RFX UR CULTURE Stat Lab 12/19/23 13:35 Completed Lab/Rad Data: Laboratory Result Diagrams 12/19/23 13:45 12/19/23 13:45 Laboratory Results 12/19/23 12/19/23 12/19/23 Range/Units 13:45 13:45 13:45 WBC 8.9 (4.0-10.5) x10^3/uL RBC 4.19 (4.1-5.4) x10^6/uL Hgb 12.5 (12.0-16.0) g/dL Hct 39.2 (35-47) % MCV 93.6 (78-100) fL MCH 29.8 (26-32) pg MCHC 31.9 L (32-36) g/dL RDW 13.7 (11.5-14.0) % Plt Count 246 (150-450) x10^3/uL MPV 10.2 (7.5-11.0) fL Gran % 79.5 H (36.0-66.0) % Immature Gran % (Auto) 1.4 H (0.00-0.4) % Nucleat RBC Rel Count 0.0 (0.00-0.1) % Eos # (Auto) 0.18 (0-0.5) x10^3/uL Immature Gran # (Auto) 0.12 H (0.00-0.03) x10^3u/L Absolute Lymphs (auto) 1.03 (1.0-4.6) x10^3/uL Absolute Monos (auto) 0.41 (0.0-1.3) x10^3/uL Absolute Nucleated RBC 0.00 (0.00-0.01) x10^3u/L Lymphocytes % 11.6 L (24.0-44.0) % Monocytes % 4.6 (0.0-12.0) % Eosinophils % 2.0 (0.00-5.0) % Basophils % 0.9 (0.0-0.4) % Absolute Granulocytes 7.05 H (1.4-6.9) x10^3/uL Basophils # 0.08 (0-0.4) x10^3/uL Sodium 135 L (137-145) mmol/L Potassium 4.3 (3.5-5.1) mmol/L Chloride 98 (98-107) mmol/L Carbon Dioxide 26 (22-30) mmol/L Anion Gap 15.2 H (5-15) MEQ/L BUN 13 (7-17) mg/dL Creatinine 0.57 (0.52-1.04) mg/dL Estimated GFR 98.3 ML/MIN Glucose 306 H (74-106) mg/dL Calcium 10.2 (8.4-10.2) mg/dL Total Bilirubin 0.80 (0.2-1.3) mg/dL AST 89 H (14-36) U/L ALT 75 H (0-35) U/L Alkaline Phosphatase 86 (38-126) U/L Troponin I 0.027 (0.000-0.034) ng/mL Serum Total Protein 9.1 H (6.3-8.2) g/dL Albumin 4.8 (3.5-5.0) g/dL Urine Color (Yellow) Urine Appearance (Clear) Urine pH (4.6-8.0) Ur Specific [place] (1.005-1.030) Urine Protein (Negative) Urine Glucose (UA) (Negative) mg/dL Urine Ketones (Negative) Urine Blood (Negative) Urine Nitrite (Negative) Urine Bilirubin (Negative) Urine Urobilinogen (0.2) mg/dL Ur Leukocyte Esterase (Negative) U Hyaline Cast (Auto) (0-2) /LPF Urine Microscopic RBC (0-5) /HPF Urine Microscopic WBC (0-5) /HPF Ur Epithelial Cells (None Seen) /HPF Urine Bacteria (None Seen) /HPF Urine Culture Reflexed (NO) 12/19/23 Range/Units 13:35 WBC (4.0-10.5) x10^3/uL RBC (4.1-5.4) x10^6/uL Hgb (12.0-16.0) g/dL Hct (35-47) % MCV (78-100) fL MCH (26-32) pg MCHC (32-36) g/dL RDW (11.5-14.0) % Plt Count (150-450) x10^3/uL MPV (7.5-11.0) fL Gran % (36.0-66.0) % Immature Gran % (Auto) (0.00-0.4) % Nucleat RBC Rel Count (0.00-0.1) % Eos # (Auto) (0-0.5) x10^3/uL Immature Gran # (Auto) (0.00-0.03) x10^3u/L Absolute Lymphs (auto) (1.0-4.6) x10^3/uL Absolute Monos (auto) (0.0-1.3) x10^3/uL Absolute Nucleated RBC (0.00-0.01) x10^3u/L Lymphocytes % (24.0-44.0) % Monocytes % (0.0-12.0) % Eosinophils % (0.00-5.0) % Basophils % (0.0-0.4) % Absolute Granulocytes (1.4-6.9) x10^3/uL Basophils # (0-0.4) x10^3/uL Sodium (137-145) mmol/L Potassium (3.5-5.1) mmol/L Chloride (98-107) mmol/L Carbon Dioxide (22-30) mmol/L Anion Gap (5-15) MEQ/L BUN (7-17) mg/dL Creatinine (0.52-1.04) mg/dL Estimated GFR ML/MIN Glucose (74-106) mg/dL Calcium (8.4-10.2) mg/dL Total Bilirubin (0.2-1.3) mg/dL AST (14-36) U/L ALT (0-35) U/L Alkaline Phosphatase (38-126) U/L Troponin I (0.000-0.034) ng/mL Serum Total Protein (6.3-8.2) g/dL Albumin (3.5-5.0) g/dL Urine Color Yellow (Yellow) Urine Appearance Clear (Clear) Urine pH 5.5 (4.6-8.0) Ur Specific [place] 1.025 (1.005-1.030) Urine Protein Negative (Negative) Urine Glucose (UA) >=1000 A (Negative) mg/dL Urine Ketones Negative (Negative) Urine Blood Negative (Negative) Urine Nitrite Negative (Negative) Urine Bilirubin Negative (Negative) Urine Urobilinogen 0.2 (0.2) mg/dL Ur Leukocyte Esterase Negative (Negative) U Hyaline Cast (Auto) NONE SEEN (0-2) /LPF Urine Microscopic RBC 0-2 (0-5) /HPF Urine Microscopic WBC 0-2 (0-5) /HPF Ur Epithelial Cells Few (None Seen) /HPF Urine Bacteria None Seen (None Seen) /HPF Urine Culture Reflexed NO (NO) - Progress Progress: improved Progress Note: 12/19/23 15:48 This patient's medical issue is 1 of moderate complexity. The level of complexity in the workup performed is based on review of the patient's past medical history, review the patient's medication list, review the patient drug allergy list, history present illness and physical findings on examination. This patient's workup includes placement of intravenous line, twelve-lead EKG, troponin level, urinalysis, CBC, CMP and CT scan of the head without contrast. I interpreted the patient's laboratory data. She has no evidence of any acute or emergent medical issue based on her laboratory data results. The CT scan of the head was interpreted by the radiologist. The radiologist states there is evidence of right maxillary sinusitis. Otherwise it is a nonacute senile brain study Counseled pt/family regarding: diagnosis, need for follow-up, rad results Medical Desision Making - Independent Historian Additional History obtained from: Relative/friend - Diagnostic Testing Diagnostic test were ordered, analyzed, and reviewed by me: Yes Radiological Interpretation: Reviewed by me, Teleradiologist Report - Risk of complications The pt has a mod risk of morbidity or mortality based on: Need for prescription drug management - Departure Departure Disposition: Home Clinical Impression: Maxillary sinusitis, Dizziness Condition: Stable Critical Care Time: No Referrals: FLO MATTHEWS [Primary Care Provider] - Follow up/PCP as directed Additional Instructions: Take all your medications as prescribed. Follow-up with your prescribing provider on 12/22/2023 for further evaluation and management. Prescriptions: Meclizine HCl 25 mg [Antivert 25 mg] 25 mg PO Q8H PRN #10 tablet PRN Reason: Dizziness Azithromycin 250 mg [Zithromax 250 MG TABLET] 250 mg PO ZPACK #6 tablet
[2023-12-19 13:41] VITALS: TEMP 97.4; O2SAT 97
[2023-12-19 13:50] LABS: Appearance Clear (Clear); Bacteria None Seen /HPF (None Seen); Bilirubin Negative (Negative); Blood Negative (Negative); Epithelial Cells Few /HPF (None Seen); Glucose, Urine >=1000 mg/dL (Negative); Hyaline Casts NONE SEEN /LPF (0-2); Ketones Negative (Negative); Leukocyte Esterase Negative (Negative); Nitrite Negative (Negative); Ph 5.5 (4.6-8.0); Protein,Urine Dip Negative (Negative); RBC 0-2 /HPF (0-5); Specific Gravity 1.025 (1.005-1.030); Urobilinogen 0.2 mg/dL (0.2); WBC 0-2 /HPF (0-5)
[2023-12-19 13:52] LABS: ADD URINE CULTURE? NO (NO)
[2023-12-19 13:56] LABS: Absolute Neutrophil Ct (ANC) 7.05 x10^3/uL (1.4-6.9); BASOPHIL % 0.9 % (0.0-0.4); Basophil (Absolute #) 0.08 x10^3/uL (0-0.4); Eosinophil (Absolute #) 0.18 x10^3/uL (0-0.5); Hematocrit 39.2 % (35-47); Hemoglobin 12.5 g/dL (12.0-16.0); IMMATURE GRAN # 0.12 x10^3u/L (0.00-0.03); IMMATURE GRAN % 1.4 % (0.00-0.4); Lymphocyte (Absolute #) 1.03 x10^3/uL (1.0-4.6); Lymphocytes % 11.6 % (24.0-44.0); Mean Cell Volume 93.6 fL (78-100); Mean Corpuscular Hemoglobin 29.8 pg (26-32); Mean Corpuscular Hgb Concent. 31.9 g/dL (32-36); Mean Platelet Volume 10.2 fL (7.5-11.0); Monocyte (Absolute #) 0.41 x10^3/uL (0.0-1.3); Monocytes % 4.6 % (0.0-12.0); Neutrophil % 79.5 % (36.0-66.0); Platelet Count 246 x10^3/uL (150-450); Red Blood Count 4.19 x10^6/uL (4.1-5.4); Red Cell Distribution Width 13.7 % (11.5-14.0); White Blood Count 8.9 x10^3/uL (4.0-10.5)
[2023-12-19 14:10] LABS: ALBUMIN 4.8 g/dL (3.5-5.0); ANION GAP 15.2 MEQ/L (5-15); BILIRUBIN,TOTAL 0.8 mg/dL (0.2-1.3); Calcium 10.2 mg/dL (8.4-10.2); Creatinine 1 0.57 mg/dL (0.52-1.04); EST GLOMERULAR FILTRATION RATE 98.3 ML/MIN; Potassium 4.3 mmol/L (3.5-5.1); Total Protein 9.1 g/dL (6.3-8.2)
--- NOTE | 2023-12-19 14:33 | XRAY ---
Indication: Syncope. Multiple contiguous axial images obtained through the head without contrast. Comparison: March 03, 2017 Age-appropriate global atrophy with minimal periventricular degenerative micro-ischemia. No acute intracranial hemorrhage, abnormal extra-axial fluid collection, or mass effect. Fourth ventricle is midline without hydrocephalus. [place]-white matter differentiation preserved. Bony calvarium intact. Again complete opacification right maxillary sinus. Remaining paranasal sinuses and mastoid air cells are clear. Impression: Again right maxillary sinus disease. Otherwise nonacute senile brain.
[2023-12-19 16:41] VITALS: BP 133/81; PULSE 112; RESP 26
== END 2023-12-19 16:40 | disposition home or self-care (01) ==
LOC: ED 13:08
DX: J32.0 Chronic maxillary sinusitis (principal); R42 Dizziness and giddiness; R55 Syncope and collapse; E11.42 Type 2 diabetes mellitus with diabetic polyneuropathy; E78.5 Hyperlipidemia, unspecified; I10 Essential (primary) hypertension; Z79.02 Long term (current) use of antithrombotics/antiplatelets; Z79.84 Long term (current) use of oral hypoglycemic drugs; Z79.85 Long-term (current) use of injectable non-insulin antidiabetic drugs; Z79.899 Other long term (current) drug therapy; Z28.310 Unvaccinated for COVID-19
CPT/HCPCS: 36000; 36415; 70450; 80053; 81001; 84439; 84443; 84484; 85025; 93005; 93041; 94760; 99284

== ENCOUNTER 2023-12-27 20:40 | Emergency (ER) | payer MEDICARE, OTHER ==
[2023-12-27 21:30] VITALS: TEMP 98.1
--- NOTE | 2023-12-27 21:57 | ERPHSYRPT ---
- History of Present Illness Time Seen by Provider: 12/27/23 21:54 Source: patient, family Exam Limitations: no limitations Patient Subjective Stated Complaint: pt states she has been having dizziness for the last 2 weeks and feeling like she is going to black out. Triage Nursing Assessment: pt alert and oriented, answers questions approp. pt back to room per wheelchair and transfers to stretcher with assist of 2. respirations nonlabored. skin warm and dry. pupils equal and reactive. bilat upper and lower ext strength wnl. Physician History: pt states she has been having dizziness for the last 2 weeks and feeling like she is going to black out. Timing/Duration: week(s) (Two weeks) Activities at Onset: activity Nitro Today/Relief: no nitro taken today Aspirin Treatment Today: no aspirin today Associated Symptoms: syncope, weakness Prior Chest Pain/Cardiac Workup: no prior chest pain Allergies/Adverse Reactions: blueberry Allergy (Verified 12/27/23 21:31) Fish Containing Products Allergy (Verified 12/27/23 21:31) melon Allergy (Verified 12/27/23 21:31) Penicillins Allergy (Verified 12/27/23 21:31) Hives strawberry Allergy (Verified 12/27/23 21:31) sulfametrole [Sulfametrole] Allergy (Verified 12/27/23 21:31) Home Medications: ALPRAZolam [Xanax 0.5 mg] 0.25 mg PO HS 02/19/15 [History] Cilostazol [Pletal] 50 mg PO BID 02/19/15 [History] Gabapentin 300 mg PO BID 02/19/15 [History] Montelukast Sodium [Singulair] 10 mg PO HS 06/19/16 [History] Acetaminophen 325 mg [Tylenol 325 mg] 650 mg PO Q4H PRN PRN 08/13/20 [History] Atorvastatin Calcium 40 mg PO HS 08/13/20 [History] Benazepril HCl 10 mg PO HS 08/13/20 [History] Empagliflozin [Jardiance] 10 mg PO DAILY 08/13/20 [History] Ergocalciferol (Vitamin D2) [Vitamin D2] 50,000 unit PO WEEKLY 08/13/20 [History] Fluticasone Propionate [Flonase NASAL] 1 spray INTRANASAL HS 08/13/20 [History] Ipratropium [place] 2 spray INTRANASAL BID 08/13/20 [History] Levothyroxine Sodium [Euthyrox] 200 mcg PO DAILY 08/13/20 [History] Loratadine 10 mg [Claritin 10 mg] 10 mg PO DAILY 08/13/20 [History] Metformin HCl 500 mg [Glucophage 500 MG] 1,000 mg DAILY 08/13/20 [History] Hx Tetanus, Diphtheria Vaccination/Date Given: No Hx Influenza Vaccination/Date Given: No Hx Pneumococcal Vaccination/Date Given: No Immunizations Up to Date: No Travel Risk - International Travel Have you traveled outside of the country in past 3 weeks: No - Coronavirus Screening Are you exhibiting any of the following symptoms?: No Close contact with a COVID-19 positive Pt in past 14-21 Days: No - Vaccine Status Have you recieved a Covid-19 vaccination: No - Review of Systems Constitutional: No Fever, No Chills Eyes: No Symptoms Ears, Nose, & Throat: No Symptoms Respiratory: No Cough, No Dyspnea Cardiac: Palpitations, Syncope, No Chest Pain, No Edema, No Orthopnea, No PND Abdominal/Gastrointestinal: No Abdominal Pain, No Nausea, No Vomiting, No Diarrhea Genitourinary Symptoms: No Dysuria Musculoskeletal: No Back Pain, No Neck Pain Skin: No Rash Neurological: No Dizziness, No Focal Weakness, No Sensory Changes Psychological: No Symptoms Endocrine: No Symptoms All Other Systems: Reviewed and Negative - Past Medical History Pertinent Past Medical History: Yes Neurological History: Peripheral Neuropathy Cardiac History: High Cholesterol, Hypertension, Peripheral Vascular Disease Respiratory History: No Pertinent History Endocrine Medical History: Diabetes Type II, Hypothyroidism Musculoskeletal History: Arthritis GI Medical History: No Pertinent History History: No Pertinent History Psycho-Social History: Anxiety Female Reproductive Disorders: No Pertinent History - Past Surgical History Past Surgical History: Yes Neuro Surgical History: No Pertinent History Cardiac: Vascular Surgery Respiratory: No Pertinent History Gastrointestinal: Other Genitourinary: No Pertinent History Musculoskeletal: Orthopedic Surgery Female Surgical History: No Pertinent History Other Surgical History: ABDOMINAL ADHESION SURGERY BACK SURGERY LEG SURGERY FOR VEIN BLOCKAGE, LEFT ROTATOR CUFF REPAIR, Right knee replacement 09/15/23 - Social History Smoking Status: Never smoker Exposure to second hand smoke: No Drug Use: none Patient Lives Alone: Yes - Nursing Vital Signs Nursing Vital Signs: Initial Vital Signs Temperature 98.1 F 12/27/23 21:05 Pulse Rate 58 L 12/27/23 21:05 Respiratory Rate 18 12/27/23 21:05 Blood Pressure 184/68 12/27/23 21:05 O2 Sat by Pulse Oximetry 96 12/27/23 21:05 Pain Scale Pain Intensity 8 - Physical Exam General Appearance: no apparent distress, alert Eye Exam: PERRL/EOMI, eyes nml inspection Ears, Nose, Throat Exam: normal ENT inspection, moist mucous membranes Neck Exam: normal inspection, non-tender, supple Respiratory Exam: normal breath sounds, lungs clear, No respiratory distress Cardiovascular Exam: normal heart sounds, tachycardia, No edema Gastrointestinal/Abdomen Exam: soft, No tenderness, No mass Back Exam: normal inspection, No CVA tenderness, No vertebral tenderness Extremity Exam: normal inspection, normal range of motion Neurologic Exam: alert, oriented x 3, cooperative, normal mood/affect, nml cerebellar function, sensation nml, No motor deficits Skin Exam: normal color, warm, dry Lymphatic Exam: No adenopathy SpO2: 96 - Course Nursing assessment & vital signs reviewed: Yes EKG Interpreted by Me: Sinus Tach, Other Rhythm Strip: Sinus Tachycardia - Radiology Exams Chest X-ray Interpretation: Reviewed by me Ordered Tests: Active Orders 24 hr Category Date Time Status EKG-ER Only STAT Care 12/27/23 21:51 Active IV Insertion STAT Care 12/27/23 22:29 Active CHEST 2 VIEWS (PA AND LAT) Stat Exams 12/27/23 21:53 Taken CHEST WITH CONTRAST [CT] Stat Exams 12/27/23 22:44 Taken CBC W DIFF Stat Lab 12/27/23 22:13 Completed CMP Stat Lab 12/27/23 22:13 Completed D-DIMER QUANTITATIVE Stat Lab 12/27/23 22:13 Completed MAGNESIUM Stat Lab 12/27/23 22:13 Completed NT PRO BNPII Stat Lab 12/27/23 22:13 Completed TROPONIN Q4H Lab 12/27/23 22:13 Completed TROPONIN Q4H Lab 12/28/23 02:00 Ordered TROPONIN Q4H Lab 12/28/23 06:00 Ordered UA W/RFX UR CULTURE Stat Lab 12/27/23 21:56 Completed Medication Summary Generic Name Dose Route Start Last Admin Trade Name Freq PRN Reason Stop Dose Admin Sodium Chloride 1,000 mls @ 100 mls/hr 12/27/23 22:00 12/27/23 22:33 Sodium Chloride 0.9% 1000 Ml IV 01/26/24 21:59 100 mls/hr .Q10H LÓPEZ Administration Discontinued Medications Generic Name Dose Route Start Last Admin Trade Name Colin PRN Reason Stop Dose Admin Enoxaparin Sodium 120 mg 12/27/23 23:02 12/27/23 23:06 Enoxaparin Sodium 120 Mg/0.8 Ml Syringe SQ 12/27/23 23:03 120 mg STAT STA Administration Enoxaparin Sodium Confirm 12/27/23 23:02 Enoxaparin Sodium 120 Mg/0.8 Ml Syringe Administered 12/27/23 23:03 Dose 120 mg SQ .[facility] Lab/Rad Data: Laboratory Result Diagrams 12/27/23 22:13 12/27/23 22:13 Laboratory Results 12/27/23 12/27/23 12/27/23 Range/Units 22:13 22:13 22:13 WBC (4.0-10.5) x10^3/uL RBC (4.1-5.4) x10^6/uL Hgb (12.0-16.0) g/dL Hct (35-47) % MCV (78-100) fL MCH (26-32) pg MCHC (32-36) g/dL RDW (11.5-14.0) % Plt Count (150-450) x10^3/uL MPV (7.5-11.0) fL Gran % (36.0-66.0) % Immature Gran % (Auto) (0.00-0.4) % Nucleat RBC Rel Count (0.00-0.1) % Eos # (Auto) (0-0.5) x10^3/uL Immature Gran # (Auto) (0.00-0.03) x10^3u/L Absolute Lymphs (auto) (1.0-4.6) x10^3/uL Absolute Monos (auto) (0.0-1.3) x10^3/uL Absolute Nucleated RBC (0.00-0.01) x10^3u/L Lymphocytes % (24.0-44.0) % Monocytes % (0.0-12.0) % Eosinophils % (0.00-5.0) % Basophils % (0.0-0.4) % Absolute Granulocytes (1.4-6.9) x10^3/uL Basophils # (0-0.4) x10^3/uL D-Dimer 2.14 H* (0.0-0.50) mg/L Sodium (137-145) mmol/L Potassium (3.5-5.1) mmol/L Chloride (98-107) mmol/L Carbon Dioxide (22-30) mmol/L Anion Gap (5-15) MEQ/L BUN (7-17) mg/dL Creatinine (0.52-1.04) mg/dL Estimated GFR ML/MIN Glucose (74-106) mg/dL Calcium (8.4-10.2) mg/dL Magnesium (1.6-2.3) mg/dL Total Bilirubin (0.2-1.3) mg/dL AST (14-36) U/L ALT (0-35) U/L Alkaline Phosphatase (38-126) U/L Troponin I 0.015 (0.000-0.034) ng/mL NT-Pro-B Natriuret Pep 227 (<300) pg/mL Serum Total Protein (6.3-8.2) g/dL Albumin (3.5-5.0) g/dL Urine Color (Yellow) Urine Appearance (Clear) Urine pH (4.6-8.0) Ur Specific [place] (1.005-1.030) Urine Protein (Negative) Urine Glucose (UA) (Negative) mg/dL Urine Ketones (Negative) Urine Blood (Negative) Urine Nitrite (Negative) Urine Bilirubin (Negative) Urine Urobilinogen (0.2) mg/dL Ur Leukocyte Esterase (Negative) U Hyaline Cast (Auto) (0-2) /LPF Urine Microscopic RBC (0-5) /HPF Urine Microscopic WBC (0-5) /HPF Ur Epithelial Cells (None Seen) /HPF Urine Bacteria (None Seen) /HPF Urine Culture Reflexed (NO) 12/27/23 12/27/23 12/27/23 Range/Units 22:13 22:13 21:56 WBC 10.6 H (4.0-10.5) x10^3/uL RBC 4.01 L (4.1-5.4) x10^6/uL Hgb 12.0 (12.0-16.0) g/dL Hct 38.2 (35-47) % MCV 95.3 (78-100) fL MCH 29.9 (26-32) pg MCHC 31.4 L (32-36) g/dL RDW 13.7 (11.5-14.0) % Plt Count 294 (150-450) x10^3/uL MPV 10.2 (7.5-11.0) fL Gran % 72.8 H (36.0-66.0) % Immature Gran % (Auto) 0.4 (0.00-0.4) % Nucleat RBC Rel Count 0.0 (0.00-0.1) % Eos # (Auto) 0.37 (0-0.5) x10^3/uL Immature Gran # (Auto) 0.04 H (0.00-0.03) x10^3u/L Absolute Lymphs (auto) 1.79 (1.0-4.6) x10^3/uL Absolute Monos (auto) 0.59 (0.0-1.3) x10^3/uL Absolute Nucleated RBC 0.00 (0.00-0.01) x10^3u/L Lymphocytes % 16.9 L (24.0-44.0) % Monocytes % 5.6 (0.0-12.0) % Eosinophils % 3.5 (0.00-5.0) % Basophils % 0.8 (0.0-0.4) % Absolute Granulocytes 7.71 H (1.4-6.9) x10^3/uL Basophils # 0.08 (0-0.4) x10^3/uL D-Dimer (0.0-0.50) mg/L Sodium 136 L (137-145) mmol/L Potassium 4.0 (3.5-5.1) mmol/L Chloride 100 (98-107) mmol/L Carbon Dioxide 24 (22-30) mmol/L Anion Gap 16.2 H (5-15) MEQ/L BUN 17 (7-17) mg/dL Creatinine 0.56 (0.52-1.04) mg/dL Estimated GFR 98.1 ML/MIN Glucose 239 H (74-106) mg/dL Calcium 9.8 (8.4-10.2) mg/dL Magnesium 1.8 (1.6-2.3) mg/dL Total Bilirubin 0.80 (0.2-1.3) mg/dL AST 72 H (14-36) U/L ALT 66 H (0-35) U/L Alkaline Phosphatase 99 (38-126) U/L Troponin I (0.000-0.034) ng/mL NT-Pro-B Natriuret Pep (<300) pg/mL Serum Total Protein 8.7 H (6.3-8.2) g/dL Albumin 4.7 (3.5-5.0) g/dL Urine Color Yellow (Yellow) Urine Appearance Clear (Clear) Urine pH 5.0 (4.6-8.0) Ur Specific [place] 1.015 (1.005-1.030) Urine Protein Negative (Negative) Urine Glucose (UA) 500 A (Negative) mg/dL Urine Ketones Negative (Negative) Urine Blood Negative (Negative) Urine Nitrite Negative (Negative) Urine Bilirubin Negative (Negative) Urine Urobilinogen 1.0 A (0.2) mg/dL Ur Leukocyte Esterase Small A (Negative) U Hyaline Cast (Auto) NONE SEEN (0-2) /LPF Urine Microscopic RBC 0-2 (0-5) /HPF Urine Microscopic WBC 0-2 (0-5) /HPF Ur Epithelial Cells Rare (None Seen) /HPF Urine Bacteria None Seen (None Seen) /HPF Urine Culture Reflexed YES (NO) - Progress Progress: unchanged Air Movement: good Progress Note: 12/27/23 23:05 During ER stay patient has worn 4-second pause followed by 2-second pause and at that time patient did blackout in the emergency room. This pause was recorded on the rhythm strip. Dr. Holguin who was covering for Dr. Werner contacted and he advised patient to be transferred to [facility]. [facility] transfer center contacted Blood Culture(s) Obtained: No Antibiotics given: No Discussed with : Other (Dr Holguin and [facility]ist Sx) Will see patient in: hospital (full admit) ([facility]) Counseled pt/family regarding: lab results, diagnosis, need for follow-up, rad results Medical Desision Making - Independent Historian Additional History obtained from: Family - Discussion of managment Care discussed with:: specialist Reviewed:: Test results, Need for additional workup - Diagnostic Testing Diagnostic test were ordered, analyzed, and reviewed by me: Yes Radiological Interpretation: Reviewed by me - Risk of complications The pt has a high risk of morbidity or mortality based on: Decision regarding hospitilization or escalation of hosp level of care - Departure Departure Disposition: Transfer ([facility]) Clinical Impression: Third degree AV block, Syncope due to sick sinus syndrome, D-dimer, elevated Condition: Stable Critical Care Time: Yes Critical Care Time(excluding separately billable procedures): Critical 30-74 mins Referrals: FLO ALANIZ [Primary Care Provider] - Follow up/PCP as directed
[2023-12-27] MEDS ORDERED: Sodium Chloride 0.9% 1000 ML 1,000 ML IV SCH (22:00)
[2023-12-27 22:16] LABS: Absolute Neutrophil Ct (ANC) 7.71 x10^3/uL (1.4-6.9); BASOPHIL % 0.8 % (0.0-0.4); Basophil (Absolute #) 0.08 x10^3/uL (0-0.4); Eosinophil % 3.5 % (0.00-5.0); Eosinophil (Absolute #) 0.37 x10^3/uL (0-0.5); Hematocrit 38.2 % (35-47); IMMATURE GRAN # 0.04 x10^3u/L (0.00-0.03); IMMATURE GRAN % 0.4 % (0.00-0.4); Lymphocyte (Absolute #) 1.79 x10^3/uL (1.0-4.6); Lymphocytes % 16.9 % (24.0-44.0); Mean Cell Volume 95.3 fL (78-100); Mean Corpuscular Hemoglobin 29.9 pg (26-32); Mean Corpuscular Hgb Concent. 31.4 g/dL (32-36); Mean Platelet Volume 10.2 fL (7.5-11.0); Monocyte (Absolute #) 0.59 x10^3/uL (0.0-1.3); Monocytes % 5.6 % (0.0-12.0); Neutrophil % 72.8 % (36.0-66.0); Platelet Count 294 x10^3/uL (150-450); Red Blood Count 4.01 x10^6/uL (4.1-5.4); Red Cell Distribution Width 13.7 % (11.5-14.0); White Blood Count 10.6 x10^3/uL (4.0-10.5)
[2023-12-27 22:23] LABS: ADD URINE CULTURE? YES (NO); Appearance Clear (Clear); Bacteria None Seen /HPF (None Seen); Bilirubin Negative (Negative); Blood Negative (Negative); Epithelial Cells Rare /HPF (None Seen); Glucose, Urine 500 mg/dL (Negative); Hyaline Casts NONE SEEN /LPF (0-2); Ketones Negative (Negative); Leukocyte Esterase Small (Negative); Nitrite Negative (Negative); Protein,Urine Dip Negative (Negative); RBC 0-2 /HPF (0-5); Specific Gravity 1.015 (1.005-1.030); WBC 0-2 /HPF (0-5)
[2023-12-27 22:30] LABS: ALBUMIN 4.7 g/dL (3.5-5.0); ANION GAP 16.2 MEQ/L (5-15); BILIRUBIN,TOTAL 0.8 mg/dL (0.2-1.3); Calcium 9.8 mg/dL (8.4-10.2); Creatinine 1 0.56 mg/dL (0.52-1.04); EST GLOMERULAR FILTRATION RATE 98.1 ML/MIN; MAGNESIUM 1.8 mg/dL (1.6-2.3); Total Protein 8.7 g/dL (6.3-8.2)
[2023-12-27] MEDS ORDERED: Sodium Chloride 0.9% 1000 ML 1,000 ML ONE (22:30)
[2023-12-27] MEDS ORDERED: ENOXAPARIN SODIUM SQ STA (23:02)
[2023-12-27] MEDS ORDERED: ENOXAPARIN SODIUM SQ ONE (23:02)
--- NOTE | 2023-12-28 00:36 | XRAY ---
CLINICAL HISTORY: elevated d dimer TECHNIQUE: CT pulmonary angiogram was performed using contrast with sagittal and coronal reformats. COMPARISON: None. FINDINGS: The main pulmonary trunk, right and left pulmonary arteries with the ascending and descending branches are normal. The segmental branches are normal in caliber and show good contrast opacification with no evidence of filling defect/thrombosis. The thoracic aorta shows atherosclerotic changes with calcified plaques. No intraluminal thrombi, dissecting intimal flaps or aneurysmal dilatation. Mild subpleural fibrosis with haziness noted in both lungs, mainly in posterior aspect of lower lobes. right lower lobe calcified nodule. No obvious pulmonary masses or consolidations. Mild posterior parietal pleural thickening noted in lower lobes. No significant mediastinal lymphadenopathy. No evidence of pleural/pericardial effusion. Heart size is normal. The thoracic spine shows degenerative changes. Scanned upper abdomen appears unremarkable. IMPRESSION: 1. No evidence of acute pulmonary arterial thromboembolism 2. Mild subpleural fibrosis with haziness noted in both lungs, mainly in posterior aspect of lower lobes. Electronically Signed by: Chelsie Conteh MD. (12/28/2023 00:33:06 EST)
[2023-12-28 00:42] VITALS: BP 152/84; PULSE 103; RESP 18; O2SAT 97
--- NOTE | 2023-12-28 08:26 | XRAY ---
Indication: Dizziness. Syncope 2 weeks. Comparison: None PA/lateral chest hyperinflated with minimal bibasilar subsegment atelectasis/scarring. No focal infiltrate, consolidation, or large effusion. Heart and mediastinal structures within normal limits. Bony thorax intact with osteopenia and mild degenerative changes. Impression: Nonacute hyperinflated chest with chronic features.
== END 2023-12-28 01:16 | disposition short-term general hospital (02) ==
LOC: ED 20:40
DX: I44.2 Atrioventricular block, complete (principal); R55 Syncope and collapse; I49.5 Sick sinus syndrome; R79.1 Abnormal coagulation profile; E78.5 Hyperlipidemia, unspecified; I10 Essential (primary) hypertension; E11.42 Type 2 diabetes mellitus with diabetic polyneuropathy; Z79.02 Long term (current) use of antithrombotics/antiplatelets; Z79.84 Long term (current) use of oral hypoglycemic drugs; Z79.899 Other long term (current) drug therapy; Z28.310 Unvaccinated for COVID-19
CPT/HCPCS: 36000; 36415; 71046; 71260; 80053; 81001; 83735; 83880; 84484; 85025; 85379; 93005; 96372; 99285; 99291; J1650